=== PATIENT | male | born 1960 | race Hispanic/Latino ===

== ENCOUNTER 2018-04-04 01:26 | Inpatient (IN) | payer OTHER ==
[~2018-04-04] VITALS: Ht 165.1 cm; Wt 85.0 kg
[~2018-04-04 01:26] MED LIST: AMIO200T44 PO; APIX5TAB PO; ASPI-1005 PO; ATOR20TA65 PO; CLOP75TA14 PO; GLYB-228 PO; INSLAN SQ; METO50 PO; PANT40TA PO
[2018-04-04] MEDS ORDERED: IPRATROPIUM/ALBUTEROL SULFATE 3 ML SOLUTION IH ONE (01:58)
[2018-04-04] MEDS ORDERED: NITROGLYCERIN 1GM/1 INCH PACKET TD ONE (02:22)
[2018-04-04] MEDS ORDERED: FUROSEMIDE 10 MG/ML 4ML VIAL ONE ×2 (02:22→07:19)
[2018-04-04 02:27] LABS: APPEARANCE,URINE Clear (CLEAR); BILIRUBIN,URINE Negative (NEGATIVE); COLOR,URINE Yellow (YELLOW); GLUCOSE, URINE (UA) >=1000 mg/dL (NEGATIVE); KETONES,URINE Negative (NEGATIVE); LEUKOCYTE ESTERASE ,URINE Negative (NEGATIVE); NITRATE,URINE Negative (NEGATIVE); OCCULT BLOOD,URINE Negative (NEGATIVE); PH,URINE 5.5 (5.0-8.0); PROTEIN,URINE POS 2+ (NEGATIVE)
[2018-04-04 02:29] LABS: BASOPHILS % (AUTO) 0.5 % (0.0-5.0); CREATININE 1.3 mg/dL (0.5-1.5); HEMATOCRIT 38.3 % (42-54); LYMPHOCYTES % (AUTO) 12.2 % (21.0-51.0); MEAN CORPUSCULAR HEMOGLOBIN 28.8 pg (27.0-33.0); MEAN CORPUSCULAR HGB CONC 32.8 g/dL (32.0-36.0); MEAN CORPUSCULAR VOLUME 87.7 fL (79-99); MONOCYTES % (AUTO) 8.8 % (3.0-13.0); NEUTROPHILS % (AUTO) 76.5 % (40.0-77.0); PLATELET COUNT (AUTO) 450 K/uL (130-400); POTASSIUM 5.1 mmol/L (3.5-5.1); RED BLOOD CELL COUNT(AUTO) 4.36 MIL/uL (4.50-6.20); RED CELL DISTRIBUTION WIDTH 13.4 % (11.0-15.5)
[2018-04-04 02:34] LABS: AMPHET/METH SCREEN,URINE NEGATIVE (NEGATIVE); BARBITURATE SCREEN, URINE NEGATIVE (NEGATIVE); BENZODIAZEPINES SCREEN,URINE NEGATIVE (NEGATIVE); CANNABINOID SCREEN,URINE NEGATIVE (NEGATIVE); COCAINE SCREEN,URINE NEGATIVE (NEGATIVE); OPIATE SCREEN,URINE NEGATIVE (NEGATIVE); PHENCYCLIDINE SCREEN,URINE NEGATIVE (NEGATIVE)
[2018-04-04 02:43] LABS: ALBUMIN 2.3 g/dL (3.5-5.0); BILIRUBIN,TOTAL 0.4 mg/dL (0.2-1.0); CREATINE KINASE MB 2.2 ng/mL (0.5-3.6); TOTAL PROTEIN, SERUM 7.2 g/dL (6.0-8.3)
[2018-04-04 03:07] LABS: BACTERIA,URINE None Seen /HPF (None Seen); MUCUS,URINE Few LPF (None Seen); RBC,URINE None Seen /HPF (0-1); SQUAMOUS EPITHELIAL CELL,UR Few /HPF (0-2); WBC,URINE None Seen /HPF (0-1)
[2018-04-04 08:02] LABS: HEMATOCRIT 37.9 % (42-54); MEAN CORPUSCULAR HEMOGLOBIN 28.7 pg (27.0-33.0); MEAN CORPUSCULAR HGB CONC 32.9 g/dL (32.0-36.0); MEAN CORPUSCULAR VOLUME 87.3 fL (79-99); PLATELET COUNT (AUTO) 450 K/uL (130-400); RED BLOOD CELL COUNT(AUTO) 4.34 MIL/uL (4.50-6.20); RED CELL DISTRIBUTION WIDTH 13.4 % (11.0-15.5); WHITE BLOOD COUNT (AUTO) 15.6 K/uL (4.8-10.8)
[2018-04-04 08:09] LABS: HEMOGLOBIN A1C 10.8 % (4.0-6.0)
[2018-04-04 08:11] LABS: CREATININE 1.2 mg/dL (0.5-1.5); POTASSIUM 4.9 mmol/L (3.5-5.1)
[2018-04-04 08:22] LABS: B-TYPE NATRIURETIC PEPTIDE 1310 pg/mL (0-100)
[2018-04-04] MEDS ORDERED: ENOXAPARIN SODIUM 30 MG/0.3 ML SQ ONE (08:37)
[2018-04-04] MEDS ORDERED: PANTOPRAZOLE SODIUM 40 MG TABLET.DR PO ONE (08:38)
[2018-04-04 08:43] LABS: BAND NEUTROPHILS % (MANUAL) 1 % (0-2); EOSINOPHILS % (MANUAL) 2 % (1-6); LYMPHOCYTES % (MANUAL) 11 % (22-44); MAN.DIFF COMMENT-IMPRESSION MANUAL DIFFERENTIAL; MONOCYTES % (MANUAL) 6 % (2-9); SEGMENTED NEUTROPHILS % 80 % (40-70)
[2018-04-04 08:44] LABS: PLATELET MORPHOLOGY COMMENT ADEQUATE
[2018-04-04] MEDS ORDERED: ENOXAPARIN SODIUM 30 MG/0.3 ML SQ SCH (09:00)
[2018-04-04] MEDS: PANTOPRAZOLE SODIUM 40 MG TABLET.DR PO SCH (09:00)
[2018-04-04] MEDS: FUROSEMIDE 10 MG/ML 4ML VIAL IVP SCH ×2 (09:00→21:27)
[2018-04-04 09:29] VITALS: BP 148/62
[2018-04-04] MEDS: ASPIRIN 81 MG EC TAB PO SCH (10:04)
[2018-04-04] MEDS: METOPROLOL TARTRATE 50 MG TAB PO SCH ×2 (10:04→21:27)
[2018-04-04] MEDS: INSULIN HUMULIN R 100 UNIT/ML 3ML SQ SCH ×3 (10:05→21:33)
[2018-04-04 11:32] VITALS: BP 156/86
[2018-04-04] MEDS ORDERED: POTASSIUM CHLORIDE 20 MEQ ERTAB PO PRN (11:45)
[2018-04-04] MEDS ORDERED: POTASSIUM CHLORIDE 10% ELIXIR 20 MEQ/15 ML UDCUP PO PRN (11:45)
[2018-04-04] MEDS ORDERED: POTASSIUM CHLORIDE 20MEQ/100ML 100 ML IV PRN (11:45)
[2018-04-04] MEDS ORDERED: LIDOCAINE HCL-MPF 1% 2ML VIAL IVP PRN (11:45)
[2018-04-04 13:52] LABS: TROPONIN I 3.01 ng/mL (0.00-0.06)
[2018-04-04 16:20] VITALS: BP 145/80
[2018-04-04 19:19] VITALS: BP 146/66
[2018-04-04] MEDS: LISINOPRIL 2.5 MG TABLET PO SCH (20:20)
[2018-04-04] MEDS: ATORVASTATIN CALCIUM 40 MG TABLET PO SCH (21:27)
[2018-04-04] MEDS: APIXABAN 5 MG TABLET PO SCH (21:27)
[2018-04-04] MEDS: AMIODARONE HCL 200 MG TABLET PO SCH (21:27)
[2018-04-04 23:31] VITALS: BP 146/82
[2018-04-05 03:13] VITALS: BP 117/74
[2018-04-05 04:35] LABS: CREATININE 1.4 mg/dL (0.5-1.5); POTASSIUM 4.8 mmol/L (3.5-5.1)
[2018-04-05] MEDS: INSULIN HUMULIN R 100 UNIT/ML 3ML SQ SCH ×4 (06:49→21:07)
[2018-04-05 07:22] VITALS: BP 128/49
[2018-04-05] MEDS: METOPROLOL TARTRATE 50 MG TAB PO SCH ×2 (08:25→21:06)
[2018-04-05] MEDS: CLOPIDOGREL BISULFATE 75 MG TAB PO SCH (08:25)
[2018-04-05] MEDS: AMIODARONE HCL 200 MG TABLET PO SCH (08:25)
[2018-04-05] MEDS: PANTOPRAZOLE SODIUM 40 MG TABLET.DR PO SCH (08:25)
[2018-04-05] MEDS: ASPIRIN 81MG TAB.CHEW PO SCH (08:25)
[2018-04-05] MEDS: APIXABAN 5 MG TABLET PO SCH ×2 (08:26→21:05)
[2018-04-05] MEDS: FUROSEMIDE 10 MG/ML 4ML VIAL IVP SCH (08:26)
[2018-04-05] MEDS: ASPIRIN 81 MG EC TAB PO SCH (08:43)
[2018-04-05] MEDS: INSULIN GLARGINE 100 UNITS/ML 10 ML VIAL SQ SCH (08:43)
[2018-04-05 11:10] VITALS: BP 130/68
[2018-04-05 16:19] VITALS: BP 124/92
[2018-04-05 19:20] VITALS: BP 128/69
[2018-04-05] MEDS: LISINOPRIL 2.5 MG TABLET PO SCH (21:05)
[2018-04-05] MEDS: ATORVASTATIN CALCIUM 40 MG TABLET PO SCH (21:05)
[2018-04-05 23:26] VITALS: BP 137/88
[2018-04-06 03:27] VITALS: BP 130/66
[2018-04-06 04:05] LABS: BASOPHILS % (AUTO) 0.9 % (0.0-5.0); EOSINOPHILS % (AUTO) 3.2 % (0.0-8.0); HEMATOCRIT 35.1 % (42-54); LYMPHOCYTES % (AUTO) 18.3 % (21.0-51.0); MEAN CORPUSCULAR HEMOGLOBIN 28.6 pg (27.0-33.0); MEAN CORPUSCULAR HGB CONC 32.6 g/dL (32.0-36.0); MEAN CORPUSCULAR VOLUME 87.5 fL (79-99); MONOCYTES % (AUTO) 9.5 % (3.0-13.0); NEUTROPHILS % (AUTO) 68.1 % (40.0-77.0); PLATELET COUNT (AUTO) 462 K/uL (130-400); RED BLOOD CELL COUNT(AUTO) 4.01 MIL/uL (4.50-6.20); RED CELL DISTRIBUTION WIDTH 13.2 % (11.0-15.5); WHITE BLOOD COUNT (AUTO) 16.7 K/uL (4.8-10.8)
[2018-04-06 04:20] LABS: CREATININE 1.3 mg/dL (0.5-1.5); MAGNESIUM 1.8 mg/dL (1.80-2.40); POTASSIUM 4.1 mmol/L (3.5-5.1)
[2018-04-06] MEDS: INSULIN HUMULIN R 100 UNIT/ML 3ML SQ SCH ×4 (05:58→20:27)
[2018-04-06 07:33] VITALS: BP 164/81
[2018-04-06] MEDS: INSULIN GLARGINE 100 UNITS/ML 10 ML VIAL SQ SCH (08:00)
[2018-04-06] MEDS ORDERED: MIDAZOLAM HCL 1 MG/ML 2ML VIAL IVP SCH (08:15)
[2018-04-06] MEDS ORDERED: LIDOCAINE HCL 2% VISCOUS 15 ML UDCUP PO SCH ×2 (08:15)
[2018-04-06] MEDS ORDERED: FENTANYL CITRATE PF 50 MCG/1 ML 2ML VIAL IVP SCH (08:15)
[2018-04-06] MEDS ORDERED: MEPERIDINE-PF 50 MG/ML SYG IVP SCH (08:15)
[2018-04-06] MEDS ORDERED: SODIUM CHLORIDE 0.9% 1000ML 1,000 ML IV ONE (08:23)
[2018-04-06] MEDS: APIXABAN 5 MG TABLET PO SCH ×3 (09:00→20:14)
[2018-04-06] MEDS: ASPIRIN 81MG TAB.CHEW PO SCH (09:00)
[2018-04-06 11:00] VITALS: BP 135/78
[2018-04-06] MEDS: FUROSEMIDE 40 MG TABLET PO SCH (11:03)
[2018-04-06] MEDS: CLOPIDOGREL BISULFATE 75 MG TAB PO SCH (11:03)
[2018-04-06] MEDS: METOPROLOL TARTRATE 50 MG TAB PO SCH ×2 (11:03→20:15)
[2018-04-06] MEDS: PANTOPRAZOLE SODIUM 40 MG TABLET.DR PO SCH (11:03)
[2018-04-06] MEDS: AMIODARONE HCL 200 MG TABLET PO SCH (11:03)
[2018-04-06] MEDS: BUDESONIDE 0.5 MG/2 ML INH IH SCH ×2 (12:47→18:22)
[2018-04-06 16:05] VITALS: BP 128/65
[2018-04-06] MEDS: DOXYCYCLINE HYCLATE 100 MG TABLET PO SCH ×2 (16:18→20:14)
[2018-04-06] MEDS: METHYLPREDNISOLONE SOD SUCC 40MG/ML 1ML IVP SCH (18:13)
[2018-04-06] MEDS ORDERED: FUROSEMIDE 10 MG/ML 4ML VIAL IV SCH (18:30)
[2018-04-06 18:59] VITALS: BP 134/61
[2018-04-06] MEDS: ATORVASTATIN CALCIUM 40 MG TABLET PO SCH (20:14)
[2018-04-06] MEDS: LISINOPRIL 2.5 MG TABLET PO SCH (20:14)
[2018-04-06] MEDS ORDERED: MORPHINE SULFATE 2 MG/ML 1ML SYG ONE (20:54)
[2018-04-06] MEDS ORDERED: MORPHINE SULFATE 2 MG/ML 1ML SYG IVP ONE (21:00)
[2018-04-06] MEDS: ALBUTEROL SULFATE 0.083% 2.5 MG/3 ML INH IH SCH (21:07)
[2018-04-06 23:50] VITALS: BP 134/94
[2018-04-07] MEDS: ALBUTEROL SULFATE 0.083% 2.5 MG/3 ML INH IH SCH ×5 (00:12→23:07)
[2018-04-07] MEDS: METHYLPREDNISOLONE SOD SUCC 40MG/ML 1ML IVP SCH ×3 (02:13→17:21)
[2018-04-07 03:45] VITALS: BP 125/81
[2018-04-07 04:09] LABS: BASOPHILS % (AUTO) 0.1 % (0.0-5.0); HEMATOCRIT 37.2 % (42-54); LYMPHOCYTES % (AUTO) 5.8 % (21.0-51.0); MEAN CORPUSCULAR HEMOGLOBIN 28.8 pg (27.0-33.0); MEAN CORPUSCULAR HGB CONC 32.6 g/dL (32.0-36.0); MEAN CORPUSCULAR VOLUME 88.2 fL (79-99); MONOCYTES % (AUTO) 2.2 % (3.0-13.0); NEUTROPHILS % (AUTO) 91.9 % (40.0-77.0); PLATELET COUNT (AUTO) 581 K/uL (130-400); RED BLOOD CELL COUNT(AUTO) 4.22 MIL/uL (4.50-6.20); RED CELL DISTRIBUTION WIDTH 13.7 % (11.0-15.5); WHITE BLOOD COUNT (AUTO) 16.4 K/uL (4.8-10.8)
[2018-04-07 04:12] LABS: CREATININE 1.3 mg/dL (0.5-1.5); MAGNESIUM 1.7 mg/dL (1.80-2.40); POTASSIUM 4.6 mmol/L (3.5-5.1)
[2018-04-07 04:47] LABS: B-TYPE NATRIURETIC PEPTIDE 1020 pg/mL (0-100)
[2018-04-07] MEDS: BUDESONIDE 0.5 MG/2 ML INH IH SCH ×2 (06:25→18:22)
[2018-04-07] MEDS: MAGNESIUM 2GM PREMIX 50ML 50 ML IV PRN (06:33)
[2018-04-07] MEDS: INSULIN HUMULIN R 100 UNIT/ML 3ML SQ SCH ×4 (06:34→20:48)
[2018-04-07 07:34] VITALS: BP 115/72
[2018-04-07] MEDS: APIXABAN 5 MG TABLET PO SCH ×2 (07:49→20:15)
[2018-04-07] MEDS: CLOPIDOGREL BISULFATE 75 MG TAB PO SCH (07:49)
[2018-04-07] MEDS: PANTOPRAZOLE SODIUM 40 MG TABLET.DR PO SCH (07:49)
[2018-04-07] MEDS: ASPIRIN 81MG TAB.CHEW PO SCH (07:49)
[2018-04-07] MEDS: FUROSEMIDE 40 MG TABLET PO SCH (07:50)
[2018-04-07] MEDS: DOXYCYCLINE HYCLATE 100 MG TABLET PO SCH ×2 (07:50→20:15)
[2018-04-07] MEDS: AMIODARONE HCL 200 MG TABLET PO SCH (07:50)
[2018-04-07] MEDS: METOPROLOL TARTRATE 50 MG TAB PO SCH ×2 (07:50→20:15)
[2018-04-07] MEDS: INSULIN GLARGINE 100 UNITS/ML 10 ML VIAL SQ SCH (07:56)
[2018-04-07] MEDS: FUROSEMIDE 10 MG/ML 4ML VIAL IV SCH ×2 (08:48→17:00)
[2018-04-07 11:09] VITALS: BP 117/77
[2018-04-07 16:28] VITALS: BP 124/52
[2018-04-07 18:31] VITALS: BP 128/79
[2018-04-07] MEDS: LISINOPRIL 2.5 MG TABLET PO SCH (20:15)
[2018-04-07] MEDS: ATORVASTATIN CALCIUM 40 MG TABLET PO SCH (20:15)
[2018-04-07] MEDS ORDERED: INSULIN GLARGINE 100 UNITS/ML 10 ML VIAL SQ SCH (21:00)
[2018-04-07 23:32] VITALS: BP 118/73
[2018-04-08] MEDS: METHYLPREDNISOLONE SOD SUCC 40MG/ML 1ML IVP SCH ×3 (02:11→21:15)
[2018-04-08 04:05] VITALS: BP 122/85
[2018-04-08 04:27] LABS: BASOPHILS % (AUTO) 0.2 % (0.0-5.0); HEMATOCRIT 36.5 % (42-54); LYMPHOCYTES % (AUTO) 4.8 % (21.0-51.0); MEAN CORPUSCULAR HEMOGLOBIN 28.2 pg (27.0-33.0); MEAN CORPUSCULAR VOLUME 87.9 fL (79-99); MONOCYTES % (AUTO) 4.2 % (3.0-13.0); NEUTROPHILS % (AUTO) 90.8 % (40.0-77.0); PLATELET COUNT (AUTO) 541 K/uL (130-400); RED BLOOD CELL COUNT(AUTO) 4.15 MIL/uL (4.50-6.20); RED CELL DISTRIBUTION WIDTH 13.7 % (11.0-15.5); WHITE BLOOD COUNT (AUTO) 29.5 K/uL (4.8-10.8)
[2018-04-08 04:40] LABS: ALBUMIN 2.2 g/dL (3.5-5.0); BILIRUBIN,DIRECT 0.1 mg/dL (0.0-0.3); BILIRUBIN,TOTAL 0.3 mg/dL (0.2-1.0); CREATININE 1.7 mg/dL (0.5-1.5); POTASSIUM 4.6 mmol/L (3.5-5.1); TOTAL PROTEIN, SERUM 7.2 g/dL (6.0-8.3)
[2018-04-08 04:58] LABS: B-TYPE NATRIURETIC PEPTIDE 1280 pg/mL (0-100)
[2018-04-08] MEDS: INSULIN HUMULIN R 100 UNIT/ML 3ML SQ SCH ×4 (06:14→21:26)
[2018-04-08] MEDS: BUDESONIDE 0.5 MG/2 ML INH IH SCH ×2 (06:26→20:14)
[2018-04-08] MEDS: ALBUTEROL SULFATE 0.083% 2.5 MG/3 ML INH IH SCH ×3 (06:26→19:33)
[2018-04-08] MEDS ORDERED: INSULIN GLARGINE 100 UNITS/ML 10 ML VIAL SQ SCH ×2 (07:30→21:00)
[2018-04-08 07:37] VITALS: BP 126/82
[2018-04-08] MEDS: DOXYCYCLINE HYCLATE 100 MG TABLET PO SCH ×2 (07:51→21:15)
[2018-04-08] MEDS: ASPIRIN 81MG TAB.CHEW PO SCH (07:51)
[2018-04-08] MEDS: PANTOPRAZOLE SODIUM 40 MG TABLET.DR PO SCH (07:51)
[2018-04-08] MEDS: FUROSEMIDE 10 MG/ML 4ML VIAL IV SCH (07:52)
[2018-04-08] MEDS: METOPROLOL TARTRATE 50 MG TAB PO SCH ×2 (07:52→21:16)
[2018-04-08] MEDS: APIXABAN 5 MG TABLET PO SCH ×2 (07:52→21:16)
[2018-04-08] MEDS: CLOPIDOGREL BISULFATE 75 MG TAB PO SCH (07:52)
[2018-04-08] MEDS: AMIODARONE HCL 200 MG TABLET PO SCH (07:52)
[2018-04-08 11:29] VITALS: BP 111/70
[2018-04-08 16:17] LABS: APPEARANCE,URINE Clear (CLEAR); BILIRUBIN,URINE Negative (NEGATIVE); COLOR,URINE Yellow (YELLOW); GLUCOSE, URINE (UA) 500 mg/dL (NEGATIVE); KETONES,URINE Negative (NEGATIVE); LEUKOCYTE ESTERASE ,URINE Negative (NEGATIVE); NITRATE,URINE Negative (NEGATIVE); OCCULT BLOOD,URINE Negative (NEGATIVE); PROTEIN,URINE POS 2+ (NEGATIVE)
[2018-04-08 16:19] VITALS: BP 145/61
[2018-04-08 16:24] LABS: BACTERIA,URINE Rare /HPF (None Seen); RBC,URINE 0-1 /HPF (0-1); WBC,URINE 0-1 /HPF (0-1)
[2018-04-08 16:25] LABS: SQUAMOUS EPITHELIAL CELL,UR Rare /HPF (0-2)
[2018-04-08 16:27] LABS: URIC ACID CRYSTALS,URINE Moderate /LPF (None Seen)
[2018-04-08] MEDS ORDERED: FUROSEMIDE 10 MG/ML 4ML VIAL IV SCH (17:00)
[2018-04-08 19:33] VITALS: BP 135/80
[2018-04-08] MEDS: ATORVASTATIN CALCIUM 40 MG TABLET PO SCH (21:15)
[2018-04-08 23:39] VITALS: BP 138/79
[2018-04-09] MEDS: ALBUTEROL SULFATE 0.083% 2.5 MG/3 ML INH IH SCH ×5 (01:36→23:15)
[2018-04-09 03:17] VITALS: BP 130/81
[2018-04-09 03:59] LABS: BASOPHILS % (AUTO) 0.1 % (0.0-5.0); HEMATOCRIT 37.7 % (42-54); LYMPHOCYTES % (AUTO) 5.8 % (21.0-51.0); MEAN CORPUSCULAR HEMOGLOBIN 27.3 pg (27.0-33.0); MEAN CORPUSCULAR HGB CONC 31.1 g/dL (32.0-36.0); MEAN CORPUSCULAR VOLUME 87.9 fL (79-99); MONOCYTES % (AUTO) 3.1 % (3.0-13.0); PLATELET COUNT (AUTO) 503 K/uL (130-400); RED BLOOD CELL COUNT(AUTO) 4.29 MIL/uL (4.50-6.20); RED CELL DISTRIBUTION WIDTH 13.8 % (11.0-15.5)
[2018-04-09 04:44] LABS: CREATININE 1.4 mg/dL (0.5-1.5); MAGNESIUM 1.9 mg/dL (1.80-2.40); PHOSPHORUS 3.8 mg/dL (2.5-4.9); POTASSIUM 4.7 mmol/L (3.5-5.1); THYROID STIMULATING HORMONE 2.47 uIU/mL (0.36-3.74); URIC ACID 5.3 mg/dL (2.6-7.2)
[2018-04-09] MEDS: BUDESONIDE 0.5 MG/2 ML INH IH SCH ×2 (06:58→18:11)
[2018-04-09] MEDS: INSULIN HUMULIN R 100 UNIT/ML 3ML SQ SCH ×4 (07:13→20:37)
[2018-04-09] MEDS ORDERED: INSULIN GLARGINE 100 UNITS/ML 10 ML VIAL SQ SCH (07:30)
[2018-04-09] MEDS: METHYLPREDNISOLONE SOD SUCC 40MG/ML 1ML IVP SCH (09:00)
[2018-04-09 09:20] VITALS: BP 123/85
[2018-04-09] MEDS: PANTOPRAZOLE SODIUM 40 MG TABLET.DR PO SCH (09:33)
[2018-04-09] MEDS: METOPROLOL TARTRATE 50 MG TAB PO SCH ×2 (09:33→20:33)
[2018-04-09] MEDS: FOLIC ACID/VITAMIN B COMP W-C 1 MG CAPSULE PO SCH (09:33)
[2018-04-09] MEDS: APIXABAN 5 MG TABLET PO SCH ×2 (09:33→20:31)
[2018-04-09] MEDS: LISINOPRIL 5 MG TABLET PO SCH ×2 (09:33→20:32)
[2018-04-09] MEDS: DOXYCYCLINE HYCLATE 100 MG TABLET PO SCH ×2 (09:33→20:32)
[2018-04-09] MEDS: CLOPIDOGREL BISULFATE 75 MG TAB PO SCH (09:33)
[2018-04-09] MEDS: AMIODARONE HCL 200 MG TABLET PO SCH (09:33)
[2018-04-09] MEDS: ASPIRIN 81MG TAB.CHEW PO SCH (09:33)
[2018-04-09] MEDS: PREDNISONE 20 MG TABLET PO SCH ×2 (09:33→20:32)
[2018-04-09] MEDS: FUROSEMIDE 40 MG TABLET PO SCH ×2 (09:34→16:14)
[2018-04-09 11:00] VITALS: BP 125/82
[2018-04-09 16:00] VITALS: BP 126/69
[2018-04-09 19:00] VITALS: BP 135/74
[2018-04-09] MEDS: ATORVASTATIN CALCIUM 40 MG TABLET PO SCH (20:32)
[2018-04-09] MEDS: INSULIN GLARGINE 100 UNITS/ML 10 ML VIAL SQ SCH (20:37)
[2018-04-09 23:00] VITALS: BP 141/90
[2018-04-10 01:58] LABS: COLLECTION PERIOD,URINE 24 HR; TOTAL VOLUME 24HRS,URINE 2600 mL; TPROTEIN TIMED,URINE 57 mg/dL; TPROTEIN U,24HR CALC 1482 mg/24HR (0-165)
[2018-04-10 03:00] VITALS: BP 146/92
[2018-04-10 03:42] LABS: HEMATOCRIT 37.5 % (42-54); MEAN CORPUSCULAR HEMOGLOBIN 29.1 pg (27.0-33.0); MEAN CORPUSCULAR HGB CONC 33.2 g/dL (32.0-36.0); MEAN CORPUSCULAR VOLUME 87.7 fL (79-99); NUCLEATED RED BLOOD CELLS 0.1 % (0.0-0.19); PLATELET COUNT (AUTO) 545 K/uL (130-400); RED BLOOD CELL COUNT(AUTO) 4.27 MIL/uL (4.50-6.20); RED CELL DISTRIBUTION WIDTH 13.5 % (11.0-15.5); WHITE BLOOD COUNT (AUTO) 22.6 K/uL (4.8-10.8)
[2018-04-10 03:53] LABS: CREATININE 1.2 mg/dL (0.5-1.5); MAGNESIUM 1.8 mg/dL (1.80-2.40); POTASSIUM 4.5 mmol/L (3.5-5.1)
[2018-04-10 05:19] LABS: CREATININE,SERUM FOR CRCL 1.2 mg/dL (0.6-1.3)
[2018-04-10 05:30] LABS: BAND NEUTROPHILS % (MANUAL) 5 % (0-2); LYMPHOCYTES % (MANUAL) 16 % (22-44); MAN.DIFF COMMENT-IMPRESSION MANUAL DIFFERENTIAL; MONOCYTES % (MANUAL) 3 % (2-9); PLATELET MORPHOLOGY COMMENT INCREASED; SEGMENTED NEUTROPHILS % 76 % (40-70)
[2018-04-10] MEDS: ALBUTEROL SULFATE 0.083% 2.5 MG/3 ML INH IH SCH ×4 (06:24→23:55)
[2018-04-10] MEDS: BUDESONIDE 0.5 MG/2 ML INH IH SCH ×2 (06:34→18:45)
[2018-04-10] MEDS: INSULIN GLARGINE 100 UNITS/ML 10 ML VIAL SQ SCH ×2 (06:42→21:09)
[2018-04-10] MEDS: INSULIN HUMULIN R 100 UNIT/ML 3ML SQ SCH ×4 (06:43→21:25)
[2018-04-10 07:00] VITALS: BP 138/85
[2018-04-10] MEDS: PANTOPRAZOLE SODIUM 40 MG TABLET.DR PO SCH (09:06)
[2018-04-10] MEDS: ASPIRIN 81MG TAB.CHEW PO SCH (09:06)
[2018-04-10] MEDS: AMIODARONE HCL 200 MG TABLET PO SCH (09:06)
[2018-04-10] MEDS: CLOPIDOGREL BISULFATE 75 MG TAB PO SCH (09:06)
[2018-04-10] MEDS: FOLIC ACID/VITAMIN B COMP W-C 1 MG CAPSULE PO SCH (09:06)
[2018-04-10] MEDS: FUROSEMIDE 40 MG TABLET PO SCH ×2 (09:07→16:17)
[2018-04-10] MEDS: LISINOPRIL 5 MG TABLET PO SCH ×2 (09:07→21:00)
[2018-04-10] MEDS: DOXYCYCLINE HYCLATE 100 MG TABLET PO SCH ×2 (09:07→21:01)
[2018-04-10] MEDS: METOPROLOL TARTRATE 50 MG TAB PO SCH ×2 (09:07→21:01)
[2018-04-10] MEDS: PREDNISONE 20 MG TABLET PO SCH ×2 (09:07→20:59)
[2018-04-10] MEDS: APIXABAN 5 MG TABLET PO SCH ×2 (09:08→21:00)
[2018-04-10 11:00] VITALS: BP 150/80
[2018-04-10 16:00] VITALS: BP 129/75
[2018-04-10 19:00] VITALS: BP 128/87
[2018-04-10] MEDS: ATORVASTATIN CALCIUM 40 MG TABLET PO SCH (21:01)
[2018-04-10 23:00] VITALS: BP 124/58
[2018-04-11 03:00] VITALS: BP 120/71
[2018-04-11 04:23] LABS: BASOPHILS % (AUTO) 0.1 % (0.0-5.0); EOSINOPHILS % (AUTO) 0.6 % (0.0-8.0); HEMATOCRIT 37.8 % (42-54); LYMPHOCYTES % (AUTO) 17.4 % (21.0-51.0); MEAN CORPUSCULAR HEMOGLOBIN 28.1 pg (27.0-33.0); MEAN CORPUSCULAR HGB CONC 32.3 g/dL (32.0-36.0); MEAN CORPUSCULAR VOLUME 87.2 fL (79-99); MONOCYTES % (AUTO) 6.2 % (3.0-13.0); NEUTROPHILS % (AUTO) 75.7 % (40.0-77.0); PLATELET COUNT (AUTO) 444 K/uL (130-400); RED BLOOD CELL COUNT(AUTO) 4.34 MIL/uL (4.50-6.20); RED CELL DISTRIBUTION WIDTH 13.8 % (11.0-15.5); WHITE BLOOD COUNT (AUTO) 17.8 K/uL (4.8-10.8)
[2018-04-11 04:35] LABS: CREATININE 1.2 mg/dL (0.5-1.5); MAGNESIUM 1.6 mg/dL (1.80-2.40)
[2018-04-11 04:48] LABS: B-TYPE NATRIURETIC PEPTIDE 1070 pg/mL (0-100)
[2018-04-11] MEDS: ALBUTEROL SULFATE 0.083% 2.5 MG/3 ML INH IH SCH ×2 (06:24→11:14)
[2018-04-11] MEDS: BUDESONIDE 0.5 MG/2 ML INH IH SCH (06:43)
[2018-04-11] MEDS: INSULIN HUMULIN R 100 UNIT/ML 3ML SQ SCH ×2 (07:27→12:23)
[2018-04-11 07:40] VITALS: BP 120/72
[2018-04-11] MEDS: INSULIN GLARGINE 100 UNITS/ML 10 ML VIAL SQ SCH (07:58)
[2018-04-11] MEDS: DOXYCYCLINE HYCLATE 100 MG TABLET PO SCH (10:05)
[2018-04-11] MEDS: FOLIC ACID/VITAMIN B COMP W-C 1 MG CAPSULE PO SCH (10:05)
[2018-04-11] MEDS: LISINOPRIL 5 MG TABLET PO SCH (10:06)
[2018-04-11] MEDS: AMIODARONE HCL 200 MG TABLET PO SCH (10:07)
[2018-04-11] MEDS: CLOPIDOGREL BISULFATE 75 MG TAB PO SCH (10:07)
[2018-04-11] MEDS: APIXABAN 5 MG TABLET PO SCH (10:08)
[2018-04-11] MEDS: ASPIRIN 81MG TAB.CHEW PO SCH (10:08)
[2018-04-11] MEDS: PREDNISONE 20 MG TABLET PO SCH (10:08)
[2018-04-11] MEDS: METOPROLOL TARTRATE 50 MG TAB PO SCH (10:09)
[2018-04-11] MEDS: PANTOPRAZOLE SODIUM 40 MG TABLET.DR PO SCH (10:09)
[2018-04-11] MEDS: FUROSEMIDE 40 MG TABLET PO SCH (10:09)
[2018-04-11] MEDS: MAGNESIUM 2GM PREMIX 50ML 50 ML IV PRN (11:00)
[2018-04-11 11:07] VITALS: BP 122/71
[2018-04-11] MEDS ORDERED: LISI-617 PO (11:37)
[2018-04-11] MEDS ORDERED: FURO40TA7 PO (11:37)
[2018-04-11] MEDS ORDERED: AMIO200T44 PO (11:37)
[2018-04-11] MEDS ORDERED: PRED5TAB PO (11:37)
[2018-04-11] MEDS ORDERED: DOXY100T2 PO (11:37)
== END 2018-04-11 14:00 | disposition home or self-care (01) | DRG 280 ==
LOC: EDH 01:26 → EDHIP 01:27 → 2BH 09:01 → 2DH 04-10 18:03
PROVIDERS: ADMIT Hospitalist; ATTEND Hospitalist
PROC: 5A2204Z Restoration of Cardiac Rhythm, Single (ICD-10-PCS; principal; 2018-04-06)
PROC: B246ZZ4 Ultrasonography of Right and Left Heart, Transesophageal (ICD-10-PCS; 2018-04-06)
PROC: 5A09357 Assistance with Respiratory Ventilation, Less than 24 Consecutive Hours, Continuous Positive Airway Pressure (ICD-10-PCS; 2018-04-06)
PROC: 5A09357 Assistance with Respiratory Ventilation, Less than 24 Consecutive Hours, Continuous Positive Airway Pressure (ICD-10-PCS; 2018-04-09)
DX: I13.0 Hypertensive heart and chronic kidney disease with heart failure and stage 1 through stage 4 chronic kidney disease, or unspecified chronic kidney disease (principal); I50.43 Acute on chronic combined systolic (congestive) and diastolic (congestive) heart failure; I21.11 ST elevation (STEMI) myocardial infarction involving right coronary artery; E87.1 Hypo-osmolality and hyponatremia; I48.1 Persistent atrial fibrillation; D68.69 Other thrombophilia; I48.92 Unspecified atrial flutter; J44.0 Chronic obstructive pulmonary disease with (acute) lower respiratory infection; N17.9 Acute kidney failure, unspecified; I11.0 Hypertensive heart disease with heart failure; E11.65 Type 2 diabetes mellitus with hyperglycemia; E78.5 Hyperlipidemia, unspecified; D64.9 Anemia, unspecified; E11.22 Type 2 diabetes mellitus with diabetic chronic kidney disease; E11.51 Type 2 diabetes mellitus with diabetic peripheral angiopathy without gangrene; E66.9 Obesity, unspecified; Z68.31 Body mass index [BMI] 31.0-31.9, adult; F17.200 Nicotine dependence, unspecified, uncomplicated; F41.9 Anxiety disorder, unspecified; I08.1 Rheumatic disorders of both mitral and tricuspid valves; I25.10 Atherosclerotic heart disease of native coronary artery without angina pectoris; I25.2 Old myocardial infarction; I25.5 Ischemic cardiomyopathy; J20.9 Acute bronchitis, unspecified; N18.3 Chronic kidney disease, stage 3 (moderate); T38.0X5A Adverse effect of glucocorticoids and synthetic analogues, initial encounter; Z79.01 Long term (current) use of anticoagulants; Z79.4 Long term (current) use of insulin; Z86.73 Personal history of transient ischemic attack (TIA), and cerebral infarction without residual deficits; Z91.14 Patient's other noncompliance with medication regimen; Z95.5 Presence of coronary angioplasty implant and graft; Z28.21 Immunization not carried out because of patient refusal
CPT/HCPCS: 36415; 71045; 71046; 76770; 78580; 80048; 80053; 80061; 80076; 80305; 80339; 81001; 82550; 82553; 82575; 82947; 82948; 83036; 83605; 83735; 83874; 83880; 84100; 84156; 84443; 84484; 84550; 85025; 87040; 92960; 93005; 93306; 93313; 94640; 94660; 94664; A9540; J1650; J1815; J1940; J2175; J2250; J2920; J3010; J3475; J7030

== ENCOUNTER → 2021-07-30 | Outpatient (CLI) | payer MEDICARE ==
[~2021-07-30] VITALS: Ht 167.6 cm; Wt 95.3 kg
[~2021-07-30] MED LIST changes: -APIX5TAB PO; +FURO40TA7 PO; -GLYB-228 PO; -INSLAN SQ; +Isosorbide Mono 30MG Tab Sr PO; +LISI40TA9 PO; +Nitroglycerin 0.4MG Sl Tab SL; +REGADENOSON 0.4 MG/5 ML PF SYG IVP SCH; +TAMS-1 PO
== END | disposition home or self-care (01) ==
LOC: SHCH 08:07
PROVIDERS: ATTEND Internal Medicine Cardiovascular Disease
DX: I48.0 Paroxysmal atrial fibrillation (principal); R94.39 Abnormal result of other cardiovascular function study
CPT/HCPCS: 78452; 93017; 96374; A9500 ×2; J2785

== ENCOUNTER 2022-01-31 11:19 | Emergency (ER) | payer MEDICARE ==
[~2022-01-31] VITALS: Ht 172.7 cm; Wt 86.2 kg
[~2022-01-31 11:19] MED LIST changes: -REGADENOSON 0.4 MG/5 ML PF SYG IVP SCH
[2022-01-31] MEDS ORDERED: METOPROLOL TARTRATE 1 MG/ML 5ML VIAL IV ONE ×3 (11:30→12:00)
[2022-01-31] MEDS ORDERED: AMIODARONE 150MG VIAL IV STA (11:37)
[2022-01-31 11:44] LABS: BASOPHILS % (AUTO) 0.3 % (0.0-5.0); EOSINOPHILS % (AUTO) 1.4 % (0.0-8.0); LYMPHOCYTES % (AUTO) 14.4 % (21.0-51.0); MEAN CORPUSCULAR HEMOGLOBIN 29.3 pg (27.0-33.0); MEAN CORPUSCULAR HGB CONC 32.6 g/dL (32.0-36.0); MEAN CORPUSCULAR VOLUME 89.9 fL (79-99); MONOCYTES % (AUTO) 11.3 % (3.0-13.0); NEUTROPHILS % (AUTO) 72.3 % (40.0-77.0); PLATELET COUNT (AUTO) 188 K/uL (130-400); RED BLOOD CELL COUNT(AUTO) 6.01 MIL/uL (4.50-6.20); RED CELL DISTRIBUTION WIDTH 14.1 % (11.0-15.5); WHITE BLOOD COUNT (AUTO) 9.4 K/uL (4.8-10.8)
[2022-01-31 11:52] LABS: CREATININE 1.2 mg/dL (0.5-1.5); POTASSIUM 4.5 mmol/L (3.5-5.1)
[2022-01-31 12:08] LABS: ALBUMIN 2.6 g/dL (3.5-5.0); BILIRUBIN,TOTAL 0.5 mg/dL (0.2-1.0); THYROID STIMULATING HORMONE 1.88 uIU/mL (0.36-3.74)
[2022-01-31 12:16] LABS: B-TYPE NATRIURETIC PEPTIDE 259 pg/mL (0-100)
[2022-01-31 12:23] LABS: APPEARANCE,URINE CLEAR (CLEAR); BILIRUBIN,URINE NEGATIVE (NEGATIVE); COLOR,URINE YELLOW (YELLOW); GLUCOSE, URINE (UA) >=1000 mg/dL (NEGATIVE); KETONES,URINE 5 mg/dL (NEGATIVE); LEUKOCYTE ESTERASE ,URINE NEGATIVE (NEGATIVE); NITRATE,URINE NEGATIVE (NEGATIVE); OCCULT BLOOD,URINE NEGATIVE (NEGATIVE); PH,URINE 5.5 (5.0-8.0); PROTEIN,URINE >=300 mg/dL (NEGATIVE); UROBILINOGEN,URINE 0.2 mg/dL (0.2-1.0)
[2022-01-31 12:32] LABS: AMPHET/METH SCREEN,URINE NEGATIVE (NEGATIVE); BARBITURATE SCREEN, URINE NEGATIVE (NEGATIVE); BENZODIAZEPINES SCREEN,URINE NEGATIVE (NEGATIVE); CANNABINOID SCREEN,URINE NEGATIVE (NEGATIVE); COCAINE SCREEN,URINE NEGATIVE (NEGATIVE); OPIATE SCREEN,URINE NEGATIVE (NEGATIVE); PHENCYCLIDINE SCREEN,URINE NEGATIVE (NEGATIVE)
[2022-01-31 12:35] LABS: BACTERIA,URINE Rare /HPF (None Seen); RBC,URINE 0-1 /HPF (0-1); SQUAMOUS EPITHELIAL CELL,UR Rare /HPF (0-2); WBC,URINE None Seen /HPF (0-1)
[2022-01-31] MEDS ORDERED: AMIODARONE 150MG VIAL IV ONE (12:53)
[2022-01-31 13:55] VITALS: BP 113/76
== END 2022-01-31 14:10 | disposition home or self-care (01) ==
LOC: EDH 11:19
DX: I48.91 Unspecified atrial fibrillation (principal); E78.5 Hyperlipidemia, unspecified; E11.51 Type 2 diabetes mellitus with diabetic peripheral angiopathy without gangrene; E11.42 Type 2 diabetes mellitus with diabetic polyneuropathy; I48.92 Unspecified atrial flutter; I25.10 Atherosclerotic heart disease of native coronary artery without angina pectoris; I25.2 Old myocardial infarction; J44.9 Chronic obstructive pulmonary disease, unspecified; F17.200 Nicotine dependence, unspecified, uncomplicated; Z79.82 Long term (current) use of aspirin; Z79.899 Other long term (current) drug therapy
CPT/HCPCS: 99285; 96374; 71045; 96375; 84443; 84484; 80053; 83880; 80305; 85025; 81001; 36415; 93005 ×2; J3490 ×3; J0282

== ENCOUNTER 2022-02-11 07:02 | Day surgery (SDC) | payer MEDICARE ==
[2022-02-07 11:28] LABS: APPEARANCE,URINE CLEAR (CLEAR); BILIRUBIN,URINE NEGATIVE (NEGATIVE); COLOR,URINE YELLOW (YELLOW); GLUCOSE, URINE (UA) >=1000 mg/dL (NEGATIVE); KETONES,URINE NEGATIVE (NEGATIVE); LEUKOCYTE ESTERASE ,URINE NEGATIVE (NEGATIVE); NITRATE,URINE NEGATIVE (NEGATIVE); OCCULT BLOOD,URINE TRACE-INTACT (NEGATIVE); PROTEIN,URINE 100 mg/dL (NEGATIVE); UROBILINOGEN,URINE 0.2 mg/dL (0.2-1.0)
[2022-02-07 11:34] LABS: CREATININE 1.3 mg/dL (0.5-1.5); POTASSIUM 4.7 mmol/L (3.5-5.1)
[2022-02-07 11:41] LABS: BACTERIA,URINE Few /HPF (None Seen); RBC,URINE 0-1 /HPF (0-1); SQUAMOUS EPITHELIAL CELL,UR 0-2 /HPF (0-2); WBC,URINE 0-1 /HPF (0-1)
[2022-02-07 12:04] LABS: INR 1.21 (0.85-1.15)
[2022-02-07 12:05] LABS: PARTIAL THROMBOPLASTIN TIME 45.3 SEC (26.3-35.5)
[2022-02-10 14:00] VITALS: BP 121/86
[2022-02-11] VITALS (12 sets, daily range): BP systolic 106–135; BP diastolic 58–85
[~2022-02-11] VITALS: Ht 170.2 cm; Wt 84.5 kg
[~2022-02-11 07:02] MED LIST changes: +0.9% NACL 500ML IV.SOLN 500 ML IV SCH; -AMIO200T44 PO; -ASPI-1005 PO; -CLOP75TA14 PO; +DABI150C PO; +EMPA25TA PO; +FURO40TA5 PO; -FURO40TA7 PO; +INSU100V12 SQ; -LISI40TA9 PO; +METF-444 PO; +METO100T14 PO; -METO50 PO; -Nitroglycerin 0.4MG Sl Tab SL; -PANT40TA PO; +SEMA1PEN3 SQ; -TAMS-1 PO
[2022-02-11 07:18] LABS: BASOPHILS % (AUTO) 0.5 % (0.0-5.0); EOSINOPHILS % (AUTO) 3.1 % (0.0-8.0); HEMATOCRIT 51.8 % (42-54); LYMPHOCYTES % (AUTO) 26.2 % (21.0-51.0); MEAN CORPUSCULAR HEMOGLOBIN 29.7 pg (27.0-33.0); MEAN CORPUSCULAR HGB CONC 32.6 g/dL (32.0-36.0); MONOCYTES % (AUTO) 8.5 % (3.0-13.0); NEUTROPHILS % (AUTO) 61.5 % (40.0-77.0); PLATELET COUNT (AUTO) 224 K/uL (130-400); RED BLOOD CELL COUNT(AUTO) 5.69 MIL/uL (4.50-6.20); WHITE BLOOD COUNT (AUTO) 9.3 K/uL (4.8-10.8)
[2022-02-11] MEDS ORDERED: NITROGLYCERIN 50MG VIAL ONE (08:44)
[2022-02-11] MEDS ORDERED: IOHEXOL 350 MG/ML 100ML INFUS..BTL IV ONE (08:47)
[2022-02-11] MEDS ORDERED: MIDAZOLAM HCL 1 MG/ML 2ML VIAL ONE (08:48)
[2022-02-11] MEDS ORDERED: FENTANYL CITRATE PF 50 MCG/1 ML 2ML VIAL ONE (08:48)
[2022-02-11] MEDS ORDERED: LIDOCAINE HCL 400MG/20ML VIAL ONE (08:48)
[2022-02-11] MEDS ORDERED: METOPROLOL TARTRATE 1 MG/ML 5ML VIAL IV ONE ×2 (09:16→09:31)
[2022-02-11] MEDS ORDERED: IOHEXOL-350 50ML VIAL IV ONE (09:27)
[2022-02-11] MEDS ORDERED: DEXTROSE 50%-WATER 50 ML DISP.SYRIN IV PRN (10:00)
[2022-02-11] MEDS ORDERED: GLUCAGON 1MG KIT 1 MG ML IM PRN (10:00)
[2022-02-11] MEDS ORDERED: 0.9%NACL 1000ML 1,000 ML IV SCH (10:00)
[2022-02-11] MEDS ORDERED: INSULIN HUMULIN R 100 UNIT/ML 3ML SQ SCH (11:30)
== END 2022-02-11 13:40 | disposition home or self-care (01) ==
LOC: DAH 07:02
PROVIDERS: ATTEND Internal Medicine Cardiovascular Disease
DX: I25.119 Atherosclerotic heart disease of native coronary artery with unspecified angina pectoris (principal); E78.5 Hyperlipidemia, unspecified; I44.1 Atrioventricular block, second degree; I48.92 Unspecified atrial flutter; I11.0 Hypertensive heart disease with heart failure; I50.22 Chronic systolic (congestive) heart failure; D68.59 Other primary thrombophilia; E11.9 Type 2 diabetes mellitus without complications; J44.9 Chronic obstructive pulmonary disease, unspecified; I25.2 Old myocardial infarction; I48.91 Unspecified atrial fibrillation; Z98.890 Other specified postprocedural states; Z79.899 Other long term (current) drug therapy; Z87.891 Personal history of nicotine dependence; Z79.01 Long term (current) use of anticoagulants; Z79.84 Long term (current) use of oral hypoglycemic drugs
CPT/HCPCS: 80048; 83880; 85610; 85730; 81001; 36415 ×2; 71045; 93005; 93458; 85025; 82948; C1894 ×2; Q9965; J7040; J3010; J3490 ×4; J2250; J1644; Q9967 ×2; 99156; 99157

== ENCOUNTER 2022-02-25 13:54 | Inpatient (IN) | payer MEDICARE ==
[2022-02-25] VITALS (29 sets, daily range): BP systolic 105–137; BP diastolic 65–101
[~2022-02-25] VITALS: Ht 165.1 cm; Wt 83.6 kg
[~2022-02-25 13:54] MED LIST changes: -0.9% NACL 500ML IV.SOLN 500 ML IV SCH
[2022-02-25] MEDS ORDERED: NITROGLYCERIN 0.4 MG SL TAB SL PRN ×2 (14:30→16:00)
[2022-02-25] MEDS ORDERED: CLONIDINE HCL 0.1 MG TABLET PO PRN (14:30)
[2022-02-25] MEDS ORDERED: IPRATROPIUM/ALBUTEROL SULFATE 3 ML SOLUTION IH PRN (14:30)
[2022-02-25] MEDS ORDERED: ACETAMINOPHEN 325 MG TAB PO PRN ×3 (14:30→16:00)
[2022-02-25 14:37] LABS: BASOPHILS % (AUTO) 0.4 % (0.0-5.0); HEMATOCRIT 50.3 % (42-54); LYMPHOCYTES % (AUTO) 19.3 % (21.0-51.0); MEAN CORPUSCULAR HEMOGLOBIN 29.6 pg (27.0-33.0); MEAN CORPUSCULAR HGB CONC 33.2 g/dL (32.0-36.0); MONOCYTES % (AUTO) 9.5 % (3.0-13.0); NEUTROPHILS % (AUTO) 67.5 % (40.0-77.0); PLATELET COUNT (AUTO) 186 K/uL (130-400); RED BLOOD CELL COUNT(AUTO) 5.65 MIL/uL (4.50-6.20); RED CELL DISTRIBUTION WIDTH 14.4 % (11.0-15.5)
[2022-02-25] MEDS ORDERED: METOPROLOL TARTRATE 50 MG TAB ONE (14:39)
[2022-02-25 14:48] LABS: CREATININE 1.2 mg/dL (0.5-1.5); POTASSIUM 4.3 mmol/L (3.5-5.1)
[2022-02-25] MEDS: METOPROLOL TARTRATE 50 MG TAB PO SCH (14:52)
[2022-02-25 15:01] LABS: ALBUMIN 2.6 g/dL (3.5-5.0); THYROID STIMULATING HORMONE 1.77 uIU/mL (0.36-3.74); TOTAL PROTEIN, SERUM 7.7 g/dL (6.0-8.3)
[2022-02-25 15:03] LABS: B-TYPE NATRIURETIC PEPTIDE 694 pg/mL (0-100)
[2022-02-25] MEDS ORDERED: POTASSIUM CHLORIDE 10% ELIXIR 20 MEQ/15 ML UDCUP PO PRN (15:30)
[2022-02-25] MEDS ORDERED: POTASSIUM CHLORIDE 20MEQ/100ML 100 ML IV PRN (15:30)
[2022-02-25] MEDS ORDERED: DEXTROSE 50%-WATER 50 ML DISP.SYRIN IV PRN (15:30)
[2022-02-25] MEDS ORDERED: LIDOCAINE HCL-MPF 1% 2ML VIAL IJ PRN (15:30)
[2022-02-25] MEDS ORDERED: KCL 20 MEQ ERTAB PO PRN (15:30)
[2022-02-25] MEDS ORDERED: ONDANSETRON 4MG INJ IV PRN (16:00)
[2022-02-25 16:03] LABS: HEMOGLOBIN A1C 9.4 % (4.0-6.0)
[2022-02-25] MEDS: INSULIN R PO SS1 SQ SCH ×2 (16:30→20:01)
[2022-02-25] MEDS ORDERED: MAGNESIUM 2GM PREMIX 50ML 50 ML IV ONE (17:12)
[2022-02-25] MEDS: FUROSEMIDE 20MG VIAL IV SCH (17:13)
[2022-02-25] MEDS ORDERED: NICOTINE 14 MG/ 24 HR PATCH TD SCH (19:00)
[2022-02-25] MEDS ORDERED: MAGNESIUM 2GM PREMIX 50ML 50 ML IV PRN (19:00)
[2022-02-25] MEDS: INSULIN LISPRO 100 UNIT/ML 3ML SQ SCH (20:01)
[2022-02-25] MEDS: FAMOTIDINE 20MG VIAL IV SCH (20:02)
[2022-02-25] MEDS: BISACODYL 5 MG TABLET.DR PO SCH (20:02)
[2022-02-25] MEDS: SPIRONOLACTONE 25 MG TAB PO SCH (20:02)
[2022-02-25] MEDS: ENOXAPARIN SODIUM 100 MG/1 ML SQ SCH (20:03)
[2022-02-25] MEDS: ATORVASTATIN 20 MG TABLET PO SCH (20:03)
[2022-02-25] MEDS ORDERED: DABIGATRAN 150MG CAPSULE PO SCH (21:00)
[2022-02-25] MEDS: METOPROLOL TARTRATE 1 MG/ML 5ML VIAL IV PRN ×3 (23:05→23:15)
[2022-02-26] VITALS (39 sets, daily range): BP systolic 96–150; BP diastolic 49–93
[2022-02-26] MEDS ORDERED: DILTIAZEM 125 MG/25 ML INJ 125 MG in 0.9%NACL 100ML 100 ML IV PRN ×2
[2022-02-26] MEDS ORDERED: DILTIAZEM 25MG INJ IVP PRN
[2022-02-26] MEDS ORDERED: DILTIAZEM 25MG INJ IVP ONE (00:02)
[2022-02-26] MEDS ORDERED: 0.9%NACL 100ML 100 ML ONE (00:03)
[2022-02-26] MEDS: FUROSEMIDE 20MG VIAL IV SCH ×3 (01:00→15:15)
[2022-02-26 03:53] LABS: BASOPHILS % (AUTO) 0.4 % (0.0-5.0); EOSINOPHILS % (AUTO) 3.2 % (0.0-8.0); HEMATOCRIT 49.3 % (42-54); LYMPHOCYTES % (AUTO) 24.9 % (21.0-51.0); MEAN CORPUSCULAR HEMOGLOBIN 29.6 pg (27.0-33.0); MEAN CORPUSCULAR HGB CONC 32.7 g/dL (32.0-36.0); MEAN CORPUSCULAR VOLUME 90.6 fL (79-99); MONOCYTES % (AUTO) 7.5 % (3.0-13.0); NEUTROPHILS % (AUTO) 63.8 % (40.0-77.0); PLATELET COUNT (AUTO) 199 K/uL (130-400); RED BLOOD CELL COUNT(AUTO) 5.44 MIL/uL (4.50-6.20); RED CELL DISTRIBUTION WIDTH 14.6 % (11.0-15.5); WHITE BLOOD COUNT (AUTO) 9.4 K/uL (4.8-10.8)
[2022-02-26 04:16] LABS: CREATININE 1.4 mg/dL (0.5-1.5); PHOSPHORUS 5.1 mg/dL (2.5-4.9); POTASSIUM 4.2 mmol/L (3.5-5.1)
[2022-02-26 04:22] LABS: B-TYPE NATRIURETIC PEPTIDE 532 pg/mL (0-100)
[2022-02-26] MEDS: INSULIN LISPRO 100 UNIT/ML 3ML SQ SCH ×7 (05:47→20:57)
[2022-02-26] MEDS: INSULIN R PO SS1 SQ SCH ×4 (06:44→20:58)
[2022-02-26] MEDS: LIDOCAINE HCL 2% VISCOUS 15 ML UDCUP PO SCH (09:00)
[2022-02-26] MEDS ORDERED: FENTANYL CITRATE PF 50 MCG/1 ML 2ML VIAL IVP ONE (09:00)
[2022-02-26] MEDS ORDERED: MIDAZOLAM HCL 5 MG/ML 2ML VIAL IV SCH (09:00)
[2022-02-26] MEDS ORDERED: MIDAZOLAM HCL 1 MG/ML 2ML VIAL ONE (09:01)
[2022-02-26] MEDS ORDERED: 0.9%NACL 1000ML 1,000 ML IV ONE (09:07)
[2022-02-26] MEDS: BISACODYL 5 MG TABLET.DR PO SCH ×2 (10:53→20:53)
[2022-02-26] MEDS: ENOXAPARIN SODIUM 100 MG/1 ML SQ SCH ×2 (10:53→20:58)
[2022-02-26] MEDS: DRONEDARONE HYDROCHLORIDE 400 MG TABLET PO SCH ×2 (10:53→20:53)
[2022-02-26] MEDS: FAMOTIDINE 20MG VIAL IV SCH ×2 (10:53→20:53)
[2022-02-26] MEDS: SPIRONOLACTONE 25 MG TAB PO SCH ×2 (10:53→20:54)
[2022-02-26] MEDS: METOPROLOL TARTRATE 50 MG TAB PO SCH ×2 (10:53→20:55)
[2022-02-26] MEDS: NICOTINE 14 MG/ 24 HR PATCH TD SCH (10:54)
[2022-02-26] MEDS: **HM**(Empagliflozin (Jardiance) 25 MG PO SCH (10:54)
[2022-02-26] MEDS: INSULIN GLARGINE 100 UNITS/ML 10 ML VIAL SQ SCH (10:55)
[2022-02-26] MEDS: ISOSORBIDE MONO 30MG SR TAB PO SCH (11:56)
[2022-02-26 15:43] LABS: % IRON SATURATION 31.4 % (30-44)
[2022-02-26] MEDS: ATORVASTATIN 20 MG TABLET PO SCH (20:54)
[2022-02-27] MEDS: FUROSEMIDE 20MG VIAL IV SCH (00:37)
[2022-02-27 04:08] VITALS: BP 125/80
[2022-02-27 04:20] LABS: BASOPHILS % (AUTO) 0.4 % (0.0-5.0); EOSINOPHILS % (AUTO) 1.9 % (0.0-8.0); HEMATOCRIT 47.8 % (42-54); LYMPHOCYTES % (AUTO) 22.8 % (21.0-51.0); MEAN CORPUSCULAR HEMOGLOBIN 29.4 pg (27.0-33.0); MEAN CORPUSCULAR HGB CONC 33.1 g/dL (32.0-36.0); MEAN CORPUSCULAR VOLUME 88.8 fL (79-99); MONOCYTES % (AUTO) 7.5 % (3.0-13.0); PLATELET COUNT (AUTO) 205 K/uL (130-400); RED BLOOD CELL COUNT(AUTO) 5.38 MIL/uL (4.50-6.20); RED CELL DISTRIBUTION WIDTH 14.6 % (11.0-15.5); WHITE BLOOD COUNT (AUTO) 10.2 K/uL (4.8-10.8)
[2022-02-27 04:29] LABS: CREATININE 1.8 mg/dL (0.5-1.5); POTASSIUM 4.2 mmol/L (3.5-5.1)
[2022-02-27] MEDS: INSULIN LISPRO 100 UNIT/ML 3ML SQ SCH ×4 (06:33→11:10)
[2022-02-27 07:04] VITALS: BP 115/75
[2022-02-27] MEDS: INSULIN R PO SS1 SQ SCH ×2 (07:30→11:06)
[2022-02-27] MEDS: LIDOCAINE HCL 2% VISCOUS 15 ML UDCUP PO SCH (08:41)
[2022-02-27] MEDS ORDERED: DABIGATRAN 150MG CAPSULE PO SCH (09:00)
[2022-02-27] MEDS ORDERED: METOPROLOL SUCCINATE 50 MG TAB.SR.24H PO SCH (09:00)
[2022-02-27] MEDS: NICOTINE 14 MG/ 24 HR PATCH TD SCH (09:00)
[2022-02-27] MEDS ORDERED: AMIODARONE 200 MG TABLET PO SCH (09:00)
[2022-02-27] MEDS: SPIRONOLACTONE 25 MG TAB PO SCH (09:01)
[2022-02-27] MEDS: **HM**(Empagliflozin (Jardiance) 25 MG PO SCH (09:02)
[2022-02-27] MEDS: ISOSORBIDE MONO 30MG SR TAB PO SCH (09:02)
[2022-02-27] MEDS: BISACODYL 5 MG TABLET.DR PO SCH (09:02)
[2022-02-27] MEDS: INSULIN GLARGINE 100 UNITS/ML 10 ML VIAL SQ SCH (09:03)
[2022-02-27] MEDS: FAMOTIDINE 20MG VIAL IV SCH (09:03)
[2022-02-27] MEDS ORDERED: METO-409 PO (11:21)
[2022-02-27] MEDS ORDERED: SPIR50TA5 PO (11:21)
[2022-02-27] MEDS ORDERED: ATOR40TA71 PO (11:21)
[2022-02-27] MEDS ORDERED: AMIO200T68 PO ×2 (11:21)
[2022-02-27] MEDS ORDERED: ISOS30TA92 PO (11:21)
== END 2022-02-27 12:00 | disposition home or self-care (01) | DRG 291 ==
LOC: EDH 13:54 → EDHIP 13:55 → 2BH 14:55 → 2AH 02-26 13:00
PROVIDERS: ADMIT Hospitalist; ATTEND Hospitalist
PROC: B24BZZ4 Ultrasonography of Heart with Aorta, Transesophageal (ICD-10-PCS; principal; 2022-02-26)
PROC: 5A2204Z Restoration of Cardiac Rhythm, Single (ICD-10-PCS; 2022-02-26)
DX: I11.0 Hypertensive heart disease with heart failure (principal); I50.23 Acute on chronic systolic (congestive) heart failure; I48.92 Unspecified atrial flutter; E44.0 Moderate protein-calorie malnutrition; D68.59 Other primary thrombophilia; E11.65 Type 2 diabetes mellitus with hyperglycemia; I25.5 Ischemic cardiomyopathy; I48.91 Unspecified atrial fibrillation; E78.5 Hyperlipidemia, unspecified; F17.200 Nicotine dependence, unspecified, uncomplicated; I25.10 Atherosclerotic heart disease of native coronary artery without angina pectoris; I25.2 Old myocardial infarction; Z79.01 Long term (current) use of anticoagulants; Z79.4 Long term (current) use of insulin; Z79.84 Long term (current) use of oral hypoglycemic drugs; Z79.899 Other long term (current) drug therapy; Z95.5 Presence of coronary angioplasty implant and graft; Z68.30 Body mass index [BMI] 30.0-30.9, adult
CPT/HCPCS: 36415; 71045; 80048; 80053; 82607; 82948; 82977; 83036; 83540; 83550; 83735; 83880; 84100; 84443; 84484; 85025; 92960; 93005; 93312; G0378; J1650; J1815; J1940; J2250; J3010; J3475; J3490; J7030

== ENCOUNTER 2023-03-20 22:07 | Emergency (ER) | payer MEDICARE, OTHER ==
[~2023-03-20] VITALS: Ht 167.6 cm; Wt 89.4 kg
[~2023-03-20 22:07] MED LIST changes: +AMIO200T68 PO; -ATOR20TA65 PO; +ATOR40TA71 PO; +ISOS30TA92 PO; -Isosorbide Mono 30MG Tab Sr PO; +METO-409 PO; -METO100T14 PO; +SPIR50TA5 PO
[2023-03-20] MEDS ORDERED: CLIN-141 PO (22:57)
[2023-03-20] MEDS ORDERED: CLINDAMYCIN 150 MG CAP PO ONE (23:00)
[2023-03-20] MEDS ORDERED: HYDROCODONE/ACETAMINOPHEN 5/325 MG TAB PO ONE (23:00)
[2023-03-20] MEDS ORDERED: IBUPROFEN 600 MG TABLET PO ONE (23:00)
[2023-03-20 23:17] VITALS: BP 179/89; PULSE 82; RESP 16; O2SAT 95
== END 2023-03-20 23:21 | disposition home or self-care (01) ==
LOC: EDH 22:07
DX: K02.9 Dental caries, unspecified (principal); I11.0 Hypertensive heart disease with heart failure; I50.9 Heart failure, unspecified; E11.9 Type 2 diabetes mellitus without complications; I25.2 Old myocardial infarction; E78.00 Pure hypercholesterolemia, unspecified; F17.200 Nicotine dependence, unspecified, uncomplicated; Z79.01 Long term (current) use of anticoagulants; Z79.84 Long term (current) use of oral hypoglycemic drugs; Z79.899 Other long term (current) drug therapy; Z95.5 Presence of coronary angioplasty implant and graft

== ENCOUNTER → 2023-06-01 | Outpatient (CLI) | payer OTHER ==
[~2023-06-01] MED LIST changes: +CLIN-141 PO
== END | disposition home or self-care (01) ==
LOC: RAH 13:59
PROVIDERS: ATTEND Internal Medicine Cardiovascular Disease
DX: J84.10 Pulmonary fibrosis, unspecified (principal); I25.10 Atherosclerotic heart disease of native coronary artery without angina pectoris; M47.815 Spondylosis without myelopathy or radiculopathy, thoracolumbar region
CPT/HCPCS: 71250

== ENCOUNTER → 2023-10-20 | Outpatient (CLI) | payer OTHER | END | disposition home or self-care (01) | LOC: SHCH 11:19 | PROVIDERS: ATTEND Internal Medicine Cardiovascular Disease | DX: I11.9 Hypertensive heart disease without heart failure (principal); I25.10 Atherosclerotic heart disease of native coronary artery without angina pectoris; R06.02 Shortness of breath; E11.9 Type 2 diabetes mellitus without complications | CPT/HCPCS: 93306 ==

== ENCOUNTER → 2024-03-10 | Outpatient (CLI) | payer OTHER | END | disposition home or self-care (01) | LOC: SHCH 13:01 | PROVIDERS: ATTEND Internal Medicine Cardiovascular Disease | DX: I65.23 Occlusion and stenosis of bilateral carotid arteries (principal); I73.9 Peripheral vascular disease, unspecified; I87.1 Compression of vein; I87.2 Venous insufficiency (chronic) (peripheral) | CPT/HCPCS: 93880; 93925; 93970 ==

== ENCOUNTER → 2024-04-20 | Outpatient (CLI) | payer OTHER ==
[2024-04-20 12:06] LABS: BASOPHILS # (AUTO) 0.04 K/uL (0.00-0.20); BASOPHILS % (AUTO) 0.4 % (0.0-5.0); EOSINOPHILS # (AUTO) 0.38 K/uL (0.00-0.70); EOSINOPHILS % (AUTO) 3.8 % (0.0-8.0); IMMATURE GRANULOCYTE ABSOLUTE 0.03 K/uL (0-1); LYMPHOCYTES # (AUTO) 1.7 K/uL (1.0-4.8); LYMPHOCYTES % (AUTO) 16.6 % (21.0-51.0); MEAN CORPUSCULAR HEMOGLOBIN 30.1 pg (27.0-33.0); MEAN CORPUSCULAR HGB CONC 32.8 g/dL (32.0-36.0); MEAN CORPUSCULAR VOLUME 91.6 fL (79-99); MONOCYTES # (AUTO) 1.1 K/uL (0.1-1.0); MONOCYTES % (AUTO) 10.4 % (3.0-13.0); NEUTROPHILS % (AUTO) 68.5 % (40.0-77.0); PLATELET COUNT (AUTO) 243 K/uL (130-400); RED BLOOD CELL COUNT(AUTO) 5.02 MIL/uL (4.50-6.20); RED CELL DISTRIBUTION WIDTH 12.9 % (11.0-15.5); WHITE BLOOD COUNT (AUTO) 10.1 K/uL (4.8-10.8)
[2024-04-20 12:22] LABS: CREATININE 1.4 mg/dL (0.5-1.3); POTASSIUM 5.2 mmol/L (3.5-5.1)
[2024-04-20 13:47] LABS: PARTIAL THROMBOPLASTIN TIME 28.8 SEC (26.3-35.5)
[2024-04-20 14:12] LABS: INR 1.01 (0.85-1.15); PROTHROMBIN TIME 10.9 SEC (9.6-11.6)
== END | disposition home or self-care (01) ==
LOC: LAB 09:14
PROVIDERS: ATTEND Internal Medicine Cardiovascular Disease
DX: Z01.812 Encounter for preprocedural laboratory examination (principal); I87.1 Compression of vein; I87.2 Venous insufficiency (chronic) (peripheral); I48.91 Unspecified atrial fibrillation
CPT/HCPCS: 36415; 80048; 85025; 85610; 85730

== ENCOUNTER → 2024-04-25 | Outpatient (CLI) | payer OTHER ==
[~2024-04-25] MED LIST changes: +IOHEXOL-350 75 ML VIAL IV ONE
== END | disposition home or self-care (01) ==
LOC: RAH 09:04
PROVIDERS: ATTEND Internal Medicine Cardiovascular Disease
DX: I65.23 Occlusion and stenosis of bilateral carotid arteries (principal); I25.10 Atherosclerotic heart disease of native coronary artery without angina pectoris; I70.0 Atherosclerosis of aorta
CPT/HCPCS: 70498; Q9967

== ENCOUNTER 2024-08-29 08:42 | Day surgery (SDC) | payer OTHER ==
[2024-08-24 09:03] VITALS: BP 140/71; PULSE 76; RESP 18; TEMP 97.5
[2024-08-24 09:34] LABS: BASOPHILS % (AUTO) 0.8 % (0.0-5.0); EOSINOPHILS % (AUTO) 2.5 % (0.0-8.0); HEMATOCRIT 45.3 % (42-54); IMMATURE GRANULOCYTE ABSOLUTE 0.06 K/uL (0-1); LYMPHOCYTES # (AUTO) 1.8 K/uL (1.0-4.8); LYMPHOCYTES % (AUTO) 15.1 % (21.0-51.0); MEAN CORPUSCULAR HEMOGLOBIN 29.6 pg (27.0-33.0); MEAN CORPUSCULAR HGB CONC 32.2 g/dL (32.0-36.0); MEAN CORPUSCULAR VOLUME 91.7 fL (79-99); MONOCYTES # (AUTO) 0.8 K/uL (0.1-1.0); MONOCYTES % (AUTO) 6.9 % (3.0-13.0); NEUTROPHILS # (AUTO) 8.8 K/uL (1.8-7.7); NEUTROPHILS % (AUTO) 74.2 % (40.0-77.0); PLATELET COUNT (AUTO) 307 K/uL (130-400); RED BLOOD CELL COUNT(AUTO) 4.94 MIL/uL (4.50-6.20); RED CELL DISTRIBUTION WIDTH 13.6 % (11.0-15.5); WHITE BLOOD COUNT (AUTO) 11.8 K/uL (4.8-10.8)
--- NOTE | 2024-08-24 09:40 | EKG ---
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1960 Requested By: SRINIVAS BACON Order Number: [id number] Reading MD: Srinivas Bacon Measurements Intervals [place] Rate: 74 P: 67 IN: 190 QRS: 130 QRSD: 90 T: 171 QT: 419 QTc: 467 Interpretive Statements Sinus rhythm Right axis deviation Nonspecific T abnormalities, lateral leads Compared to ECG 02/26/2022 09:54:06 Right-axis deviation now present T-wave abnormality now present Left posterior fascicular block no longer present Prolonged QT interval no longer present Electronically Signed On 08-24-2024 20:02:33 ULTRASOUND APPLICATIONS SPECIALIST by Srinivas Bacon Please click the below link to view image of tracing.
[2024-08-24 09:44] LABS: INR 0.96 (0.85-1.15); PROTHROMBIN TIME 10.8 SEC (9.6-11.6)
[2024-08-24 09:47] LABS: CREATININE 1.3 mg/dL (0.5-1.3); POTASSIUM 5.1 mmol/L (3.5-5.1)
--- NOTE | 2024-08-24 11:26 | HMCIMG ---
CHEST 1VW REASON: R COMPARISON: 05/01/2023 FINDINGS: There are mildly increased interstitial markings in both lungs most prominent in the lower lobes, this could represent early interstitial fibrosis. There are no acute appearing infiltrates. There are no nodules. Heart size is normal with no vascular congestion or effusion. IMPRESSION: 1. Findings suggesting no early or mild pulmonary fibrosis. 2. No acute finding.
--- NOTE | 2024-08-26 14:20 | NUR ---
RE: LABS REPORTED WBC 11.8 (PT ASYMPTOMATIC) TO [facility] BMP RESULTS. NO NEW ORDERS RECEIVED.
[2024-08-29] VITALS (9 sets, daily range): BP systolic 111–147; BP diastolic 67–90; PULSE 58–74; RESP 9–20; TEMP 97.2–97.7
[~2024-08-29] VITALS: Ht 167.6 cm; Wt 88.0 kg
[~2024-08-29 08:42] MED LIST changes: -AMIO200T68 PO; +ASPI-1443 PO; +CHOL100040 PO; -CLIN-141 PO; +CLOP75TA32 PO; -DABI150C PO; +DAPA5TAB PO; -EMPA25TA PO; +FOLI1TAB85 PO; +INSLAN SQ; -INSU100V12 SQ; -IOHEXOL-350 75 ML VIAL IV ONE; -METF-444 PO; +METF-446 PO; -SPIR50TA5 PO; +TAMS-1 PO; +VALS40TA11 PO
[2024-08-29] MEDS: 0.9%NACL 1000ML 1,000 ML IV SCH (09:30)
[2024-08-29] MEDS ORDERED: LIDOCAINE HCL 400MG/20ML VIAL ONE (11:33)
[2024-08-29] MEDS ORDERED: HEParin-NS 1,000 UNIT/500 ML 1,000 ML IV ONE (11:33)
[2024-08-29] MEDS ORDERED: NITROGLYCERIN 50MG VIAL ONE (11:34)
[2024-08-29] MEDS ORDERED: IODIXANOL 320 MG/ML 100 ML VIAL ONE (11:38)
[2024-08-29] MEDS ORDERED: MIDAZOLAM HCL 1 MG/ML 2ML VIAL ONE (11:49)
[2024-08-29] MEDS ORDERED: FENTanyl CITRate PF 50 MCG/1 ML 2ML VIAL ONE (11:49)
[2024-08-29] MEDS ORDERED: HEParin 10,000 UNIT/10ML (1,000 UNIT/ML) VIAL ONE (12:23)
--- NOTE | 2024-08-29 13:17 | PRN ---
Procedure Note INDICATION FOR PROCEDURE: [] Symptom limiting claudication Diabetic angiopathy Known peripheral arterial disease of InStent restenosis of left SFA stent of 75% and left popliteal artery of 75% PROCEDURE: [] Conscious sedation Abdominal aortogram with bilateral lower extremity runoffs 45 cm sheath from right common femoral artery placed into left superficial femoral artery with contrast injection and pressure measurement Left distal superficial femoral artery drug coated balloon angioplasty with the use of a 6 mm x 150 mm drug coated balloon to 6.37 mm Proximal left popliteal artery drug coated balloon angioplasty with the use of a 6 mm x 150 mm drug coated balloon deployed to 6.37 mm Selective right and left common carotid arteriography DATE OF PROCEDURE: August 29, 2024 DINING CAR HOP: Srinivas Bacon MERGED WITH [facility] PROCEDURE NOTE: [] Patient was electively brought to catheterization suite and prepped and draped in sterile fashion. An IV was started if not already in place in both groins were exposed for arterial access. 2% lidocaine was used for local anesthesia then a micropuncture kit was used to gain access and once verifying bottles and modified Seldinger technique was utilized to place a six Faroese sheath and with the right common femoral artery. Next the Omni flush catheter was then placed into the abdominal aorta pressure measurements were obtained and then an aortogram was performed. Access was used to direct a Glidewire down to the left SFA under fluoroscopic guidance. Next the Omni flush catheter was removed the six Faroese 10 cm sheath was removed and then a 45 cm six Faroese sheath was placed from the right common femoral artery and parked into the left superficial femoral artery. They are contrast injections was performed in addition to pressure measurements. Findings are as described below. Next a 6 mm x 150 mm drug coated balloon was then placed into the distal left SFA stent extending into the proximal left popliteal artery and was deployed for a total of 3 minutes at 12 atmospheres are 6.37 mm. Follow up contrast injection well no evidence of dissection or perforation with no significant residual stenosis noted. Runoff to left leg at end of case revealed two-vessel runoff still intact involving the left posterior tibial artery and left peroneal artery. Next the long sheath was replaced once more with a short sheath and then I placed a JR4 catheter into the right common carotid artery with images obtained and then into the left common carotid artery with images obtained. At end of case I did do a runoff to the right lower extremity through the sheath with findings as described below. Next Perclose device was used for closure of arteriotomy site and no complications occurred. FINDINGS: [] Bilateral common carotid arteries were noted to be patent. Right internal carotid artery had a 75% stenosis in its proximal segment Left internal carotid artery had a 70-75% stenosis in its proximal segment The abdominal aorta showed no evidence of aneurysmal changes present. Bilateral renal arteries were noted to be patent. Bilateral common iliac arteries were noted to be patent. Bilateral external and internal iliac arteries were noted to be patent. Bilateral common femoral arteries were noted to be patent. The stent noted in the right SFA did show some luminal irregularities but was patent and the right popliteal artery was also noted to be patent with single vessel runoff noted to the right foot via the right anterior tibial artery with a 100% occlusion noted of the right tibioperoneal trunk with reconstitution noted of the right posterior tibial artery and right peroneal artery seen. The distal left SFA stent had 75% in stent restenosis present which has been seen before and a proximal popliteal artery on the left had a 70-75% stenosis present as well. There was two-vessel runoff noted to the left foot via patent left AA posterior tibial artery and peroneal artery with an occluded left anterior tibial artery which reconstituted distally above the level of the ankle. IMPRESSION: [] Successful drug coated balloon angioplasty to the distal left SFA for InStent re stenosis and the proximal left popliteal artery with the use of a 6 mm by 150 mm Medtronic drug coated balloon deployed to 6.37 mm PLAN: [] Outpatient consultation with Dr. Wesly La for consideration of TCAR intervention to bilateral internal carotid artery stenoses SRINIVAS BACON MD Aug 29, 2024 13:17
[2024-08-29] MEDS ORDERED: DEXTROSE 50%-WATER 50 ML DISP.SYRIN IV PRN (13:30)
[2024-08-29] MEDS ORDERED: 0.9%NACL 1000ML 1,000 ML IV SCH (13:30)
[2024-08-29] MEDS ORDERED: GLUCAGON 1MG KIT 1 MG ML IM PRN (13:30)
[2024-08-29] MEDS ORDERED: INSULIN humuLIN R 100 UNIT/ML 3ML SQ SCH (16:30)
== END 2024-08-29 17:00 | disposition home or self-care (01) ==
LOC: DAH 08:42
PROVIDERS: ATTEND Internal Medicine Cardiovascular Disease
DX: I70.212 Atherosclerosis of native arteries of extremities with intermittent claudication, left leg (principal); E11.51 Type 2 diabetes mellitus with diabetic peripheral angiopathy without gangrene; I65.23 Occlusion and stenosis of bilateral carotid arteries; I10 Essential (primary) hypertension; E11.9 Type 2 diabetes mellitus without complications; I25.10 Atherosclerotic heart disease of native coronary artery without angina pectoris; I77.9 Disorder of arteries and arterioles, unspecified; T82.856A Stenosis of peripheral vascular stent, initial encounter; Z79.899 Other long term (current) drug therapy; Z79.84 Long term (current) use of oral hypoglycemic drugs; Z79.82 Long term (current) use of aspirin; Y71.8 Miscellaneous cardiovascular devices associated with adverse incidents, not elsewhere classified; Y92.89 Other specified places as the place of occurrence of the external cause
CPT/HCPCS: 80048; 85025; 85610; 85730; 36415; 71045; 93005; 36222; 75625; 75716; 37224; 82948 ×2; A4223 ×3; C1769; C1894 ×2; C1760; C1893; C2623; J3010; J3490 ×2; J7030; J1644 ×2; J2250; Q9967; A4215; A4222; A4221; A4663; A4216; A4606; 36223; 99156; 99157

== ENCOUNTER → 2024-10-27 | Outpatient (CLI) | payer OTHER ==
[2024-10-27 16:24] LABS: CREATININE 1.6 mg/dL (0.5-1.3); POTASSIUM 5.6 mmol/L (3.5-5.1)
== END | disposition home or self-care (01) ==
LOC: LAB 13:38
PROVIDERS: ATTEND Internal Medicine Cardiovascular Disease
DX: I65.23 Occlusion and stenosis of bilateral carotid arteries (principal)
CPT/HCPCS: 36415; 80048

== ENCOUNTER 2025-01-09 06:07 | Day surgery (SDC) | payer OTHER ==
[2025-01-06 10:58] LABS: BASOPHILS # (AUTO) 0.04 K/uL (0.00-0.20); BASOPHILS % (AUTO) 0.3 % (0.0-5.0); EOSINOPHILS # (AUTO) 0.23 K/uL (0.00-0.70); EOSINOPHILS % (AUTO) 1.5 % (0.0-8.0); HEMATOCRIT 44.1 % (42-54); IMMATURE GRANULOCYTE ABSOLUTE 0.15 K/uL (0-1); LYMPHOCYTES # (AUTO) 2.6 K/uL (1.0-4.8); LYMPHOCYTES % (AUTO) 16.6 % (21.0-51.0); MEAN CORPUSCULAR HEMOGLOBIN 30.3 pg (27.0-33.0); MEAN CORPUSCULAR HGB CONC 33.6 g/dL (32.0-36.0); MEAN CORPUSCULAR VOLUME 90.2 fL (79-99); MONOCYTES # (AUTO) 1.1 K/uL (0.1-1.0); MONOCYTES % (AUTO) 6.9 % (3.0-13.0); NEUTROPHILS # (AUTO) 11.4 K/uL (1.8-7.7); NEUTROPHILS % (AUTO) 73.7 % (40.0-77.0); PLATELET COUNT (AUTO) 256 K/uL (130-400); RED BLOOD CELL COUNT(AUTO) 4.89 MIL/uL (4.50-6.20); RED CELL DISTRIBUTION WIDTH 13.2 % (11.0-15.5); WHITE BLOOD COUNT (AUTO) 15.5 K/uL (4.8-10.8)
[2025-01-06 11:03] LABS: CREATININE 1.6 mg/dL (0.5-1.3); POTASSIUM 4.4 mmol/L (3.5-5.1)
--- NOTE | 2025-01-06 11:03 | EKG ---
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
[2025-01-06 11:04] LABS: ADD UA MICROSCOPIC YES; APPEARANCE,URINE CLEAR (CLEAR); BILIRUBIN,URINE NEGATIVE (NEGATIVE); COLOR,URINE LIGHT-YELLOW (YELLOW); GLUCOSE, URINE (UA) >=1000 mg/dL (NEGATIVE); KETONES,URINE NEGATIVE (NEGATIVE); LEUKOCYTE ESTERASE ,URINE NEGATIVE Leu/uL (NEGATIVE); NITRATE,URINE NEGATIVE (NEGATIVE); OCCULT BLOOD,URINE MODERATE (NEGATIVE); PROTEIN,URINE 300 mg/dL (NEGATIVE); UROBILINOGEN,URINE 0.2 mg/dL (0.2-1.0)
[2025-01-06 11:06] LABS: MUCUS,URINE RARE LPF (None Seen); WBC,URINE 0-1 /HPF (0-1)
[2025-01-06 11:08] VITALS: BP 167/85; PULSE 74; RESP 17; TEMP 98.1
[2025-01-06 11:23] LABS: B-TYPE NATRIURETIC PEPTIDE 546 pg/mL (0-100)
[2025-01-06 11:30] LABS: INR 0.97 (0.85-1.15); PROTHROMBIN TIME 10.3 SEC (9.6-11.6)
[2025-01-06 11:31] LABS: PARTIAL THROMBOPLASTIN TIME 26.2 SEC (26.3-35.5)
--- NOTE | 2025-01-06 12:12 | HMCIMG ---
Exam Type: CHEST 1VW Clinical Information: PREOP Comparison: None Findings: The lungs are clear of infiltrates. The heart is enlarged. Bony and soft tissue structures of the chest wall are unremarkable. IMPRESSION: Cardiomegaly. Clear lungs.
--- NOTE | 2025-01-06 14:06 | NUR ---
RE: LABS REPORTED BMP/CBC RESULTS TO JJ CAMPA NP. PATIENT ASYMPTOMATIC, RECEIVED ORDERS TO REPEAT CBC/BMP IN AM AND START NS AT 75ML/HR UPON ARRIVAL.
[~2025-01-09] VITALS: Ht 165.1 cm; Wt 85.2 kg
[2025-01-09] VITALS (10 sets, daily range): BP systolic 110–143; BP diastolic 60–79; PULSE 64–99; RESP 10–25; TEMP 97.2–97.9
[~2025-01-09 06:07] MED LIST changes: +BUPR100T13 PO; -CHOL100040 PO; +DAPA10TA PO; -DAPA5TAB PO; +DONE5TAB33 PO; -FOLI1TAB85 PO; +HYDR25TA67 PO; -SEMA1PEN3 SQ; +SEMA1SYR SQ; -TAMS-1 PO; +TAMS-55 PO
[2025-01-09] MEDS: 0.9%NACL 1000ML 1,000 ML IV SCH (06:41)
[2025-01-09 07:01] LABS: BASOPHILS # (AUTO) 0.04 K/uL (0.00-0.20); BASOPHILS % (AUTO) 0.3 % (0.0-5.0); EOSINOPHILS % (AUTO) 1.4 % (0.0-8.0); HEMATOCRIT 40.9 % (42-54); IMMATURE GRANULOCYTE ABSOLUTE 0.13 K/uL (0-1); LYMPHOCYTES # (AUTO) 1.4 K/uL (1.0-4.8); LYMPHOCYTES % (AUTO) 9.7 % (21.0-51.0); MEAN CORPUSCULAR HEMOGLOBIN 30.3 pg (27.0-33.0); MEAN CORPUSCULAR HGB CONC 34.5 g/dL (32.0-36.0); MEAN CORPUSCULAR VOLUME 87.8 fL (79-99); MONOCYTES # (AUTO) 0.5 K/uL (0.1-1.0); MONOCYTES % (AUTO) 3.8 % (3.0-13.0); NEUTROPHILS # (AUTO) 11.8 K/uL (1.8-7.7); NEUTROPHILS % (AUTO) 83.9 % (40.0-77.0); PLATELET COUNT (AUTO) 225 K/uL (130-400); RED BLOOD CELL COUNT(AUTO) 4.66 MIL/uL (4.50-6.20); RED CELL DISTRIBUTION WIDTH 13.2 % (11.0-15.5); WHITE BLOOD COUNT (AUTO) 14.1 K/uL (4.8-10.8)
[2025-01-09 07:06] LABS: CREATININE 1.5 mg/dL (0.5-1.3); POTASSIUM 4.1 mmol/L (3.5-5.1)
[2025-01-09] MEDS ORDERED: levoFLOXacin 500 MG/D5W 100 ML 100 ML ONE (07:30)
[2025-01-09] MEDS ORDERED: HEParin-NS 1,000 UNIT/500 ML 1,000 ML IV ONE (07:34)
[2025-01-09] MEDS ORDERED: HEParin 10,000 UNIT/10ML (1,000 UNIT/ML) VIAL ONE (07:34)
[2025-01-09] MEDS ORDERED: LIDOCAINE HCL 400MG/20ML VIAL ONE (07:34)
[2025-01-09] MEDS ORDERED: SODIUM BICARB 50MEQ 50ML VIAL 50 ML ONE (07:34)
[2025-01-09] MEDS ORDERED: NITROGLYCERIN 50MG VIAL ONE (07:34)
[2025-01-09] MEDS ORDERED: niCARDIpine 25MG INJ IV ONE (07:34)
[2025-01-09] MEDS ORDERED: IOHEXOL 350 MG/ML 100ML INFUS..BTL IV ONE ×2 (07:35→10:49)
[2025-01-09] MEDS ORDERED: FENTanyl CITRate PF 50 MCG/1 ML 2ML VIAL ONE (07:48)
[2025-01-09] MEDS ORDERED: MIDAZOLAM HCL 1 MG/ML 2ML VIAL ONE ×2 (07:49→07:59)
[2025-01-09] MEDS ORDERED: HEParin-NS 1,000 UNIT/500 ML 500 ML IV ONE (08:47)
[2025-01-09] MEDS ORDERED: DEXTROSE 50%-WATER 50 ML DISP.SYRIN IV PRN (09:30)
[2025-01-09] MEDS ORDERED: GLUCAGON 1MG KIT 1 MG ML IM PRN (09:30)
[2025-01-09] MEDS: INSULIN humuLIN R 100 UNIT/ML 3ML SQ ONE (09:52)
--- NOTE | 2025-01-09 10:10 | CCATH ---
PROCEDURE NOTE PROCEDURES: * Left heart catheterization. * Selective diagnostic right and left coronary arteriogram. * Balloon angioplasty and stent placement in the LAD. * IFR of the circumflex marginal branch. * Conscious sedation for 60 minutes. INDICATIONS: * Known history of coronary artery disease. * Status post remote multivessel stenting. * Recurrent angina. * Abnormal Lexiscan Cardiolite. * Bilateral carotid stenosis, in anticipation of an interventional procedure. COMPLICATIONS: None. TOTAL CONTRAST: 70 mL. DESCRIPTION OF PROCEDURE: The patient was taken to the cardiac catheterization lab after appropriate operative consents were signed. It was prepped and draped in the usual fashion. After conscious sedation was administered, the right radial artery region was infiltrated with 2% Xylocaine without epinephrine. A 6-Malawian radial slender sheath was advanced in a retrograde fashion following modified Seldinger technique over an indwelling wire. At this point, a TIG-4 catheter was advanced over an indwelling wire. It was placed in the left ventricular cavity. Left ventricular end-diastolic pressure measurement was obtained. Unfortunately, this was in excess of 20 to 25. Given that, the ventriculography was deferred. Moreover, the patient has chronic kidney disease stage 3. Pull back revealed no significant aortic stenosis. At this point, the catheter was advanced and engaged in the ostium of the right coronary artery. This vessel was imaged in multiplane. The right coronary artery was a moderately sized vessel. It had a stent in its proximal to mid portion that was chronically deployed. This was patent; however, at the distal edge, there was a hazy 80% stenotic lesion in a candy wrapper fashion. The acute marginal branch was patent. The distal RCA was patent. The PDA was a moderately sized vessel and had an 80% to 90% ostial lesion. The catheter was engaged in the left main; however, it did not seat well, so we elected to use a 3.0 left coronary FL guide catheter. This was selectively engaged in the ostium of the left main. Imaging was obtained in multiplane. The left main was a moderately sized vessel that was free of disease and bifurcated LAD and circumflex. The LAD was a large vessel that gave rise to several diagonals and septal perforators. The LAD had a heavily calcified lesion in the proximal to mid segment traversing the origin of the first diagonal. It had a rating of 80% to 90%. The apical LAD also had a 90% stenotic lesion. The diagonal one was small and had tandem 90% stenotic lesions. Circumflex coronary artery essentially consisted of one single obtuse marginal branch that was branching into three separate branches. There was a stent in the main body of the obtuse marginal branch and there was a 60% in-stent restenosis in the proximal portion. The distal portion of that OM had 3 branches, 2 of which were patent and one was 100% occluded and had been occluded on a chronic basis by prior studies. At this point, the decision was made to proceed with an intervention on the LAD. 0.014 wire was selected and placed in the distal circulation. We elected to pre-dilate the vessel with an NC balloon 3.0 given the degree of calcification. This was followed by placement of a 3.0 x 30 [place] stent, which was placed overlapping the origin of the first diagonal. The stent was deployed to normal pressures and the NC balloon was then re-advanced and inflated to 20 atmospheres, which was measured at 3.13 mm in size. The final angiographic result was good on the LAD. At this point, I elected to proceed with an IFR of the circ OM branch. This was performed and we had two separate readings, both of which were more than 0.95. Given that, I elected not to intervene on the circumflex. Given the chronic kidney disease and elevated LV end-diastolic pressure, I elected to continue with conservative management for the right coronary artery and manage the patient medically. This was done to conserve contrast. The patient will have his RCA and PDA addressed in a different setting. It was noted that the patient had significant calcification in the posterior segment of the left ventricle. This may be due to pericardial calcification, but more than likely due to myocardial calcification from prior infarction. FINAL IMPRESSION: * Severe three-vessel coronary artery disease. * Patent RCA stent with distal edge ____ 80% lesion. * Patent circumflex OM stent with 60% proximal in-stent restenosis and IFR of 0.95. * Status post successful angioplasty and stent placement in the LAD with a 3.0 x 30 [place] post dilated with a 3.0 x 20 NC balloon to 20 atmospheres at 3.13 mm in size with good final angiographic results. PLAN: The patient was stable throughout the procedure. The catheter was withdrawn over an indwelling wire. Radial band was applied after withdrawal of the radial sheath. 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 TID: [id number] RECEIPT: [id number]
--- NOTE | 2025-01-09 12:10 | NUR ---
VASC BAND: VASC BAND REMOVED WITH NO ACTIVE BLEEDING PRESENT. CLEANSED AREA WITH CHLORAPREP FOLLOWED BY APPLYING STERILE 2X2 GAUZE THEN 2X2 TEGADERM. NO REDNESS/SWELLING NOTED TO SURROUNDING AREA RT WRIST.
--- NOTE | 2025-01-10 01:01 | HMCSR ---
APPROVED REPORT EXAM: Two-dimensional and M-mode echocardiogram with Doppler and color Doppler. INDICATION ICD: Heart Failure 2D Dimensions RVDd4.7 cmLVEF(%)60.3 (>50%)LVED Vol(simp.)114.0 mL IVSd1.1 (0.7-1.1cm)FS(%)32 %LVES Vol(simp.)52.0 mL LVDd3.7 (3.8-5.6cm)LA (2D)3.7 (1.6-4.0cm)LVEF(%, simp.)55 % PWd1.0 (0.7-1.1cm)Ao Root(2D)2.7 (2.0-3.7cm)LA ESV INDEX (BP)28.13 mL/m2 LVDs2.5 (2.5-4.0cm)LVOT diam2.0 (1.8-2.4cm) IVC diam2.2 cm Deformation Strain Apical 4-12.4 % Apical 2-11.0 % Apical 3-10.0 % Global Strain-11.1 % M-Mode Dimensions EPSS1.1 cm LA (MM)2.8 (1.6-4.0cm) Ao Root(MM)3.1 (2.0-3.7cm) Aortic Valve AoV Vmax1.2 m/Eva Peak GR5.6 mmHgLVOT Vmax1.0 m/s AoV VTI0.3 mAo Mean GR3.2 mmHgLVOT VTI0.22 m ISAAC (VMAX)2.49 cm2AVA (VTI) 2.3 cm2 Mitral Valve MV E Vmax94.7 cm/sDECEL Mdvs466 ms MV A Vmax46.7 cm/sP 1/2 T118 ms E/A ratio2.0MVA (PHT)1.9 cm2 TDI E/E' Abnwzf02.1E/E' Lmdymvn27.5 Medial E' Peak V4.29 cm/sLateral E' Peak V4.61 cm/s Tricuspid Valve TR Vmax2.1 m/sRVSP18.3 mmHg TR Peak GR18.3 mmHg Left Ventricle The left ventricle is normal size. The basal/mid/apical inferior and inferior lateral rojas are hypok inetic. The other rojas are grossly normal in function. Mild concentric left ventricular hypertrophy. Left ventricle systolic function is mildly depressed, estimated LVEF 45%. Grade 3 diastolic dysfunct ion. Right Ventricle The right ventricle is mildly dilated. Right ventricle systolic function is low normal, TAPSE 16 mm. Atria The left atrium size is normal. The right atrium size is normal. Aortic Valve Aortic valve is trileaflet. The leaflets are mildly thickened and calcified. Trace aortic regurgitati on. There is no aortic valvular stenosis. Mitral Valve The mitral valve is normal in structure. The leaflets are mildly thickened and calcified. Trace jasen l regurgitation. There is no mitral valve stenosis. Tricuspid Valve The tricuspid valve is normal in structure. Trace tricuspid regurgitation. RVSP is 18 mmHg. Pulmonic Valve Pulmonic valve is not well visualized. Great Vessels The aortic root is normal in size. IVC is dilated and collapses <50% with inspiration. Pericardium There is no pericardial effusion. Conclusion The cardiac chambers are normal in size. Mild concentric left ventricular hypertrophy. The basal/mid/apical inferior and inferior lateral rojas are hypokinetic. The other rojas are grossl y normal in function. Left ventricle systolic function is mildly depressed, estimated LVEF 45%. Grade 3 diastolic dysfunction. Trace aortic regurgitation. Trace mitral regurgitation. Trace tricuspid regurgitation. PASP is 33 mmHg. There is no pericardial effusion.
== END 2025-01-09 13:05 | disposition home or self-care (01) ==
LOC: DAH 06:07
PROVIDERS: ATTEND Internal Medicine Cardiovascular Disease
DX: R94.39 Abnormal result of other cardiovascular function study (principal); I25.118 Atherosclerotic heart disease of native coronary artery with other forms of angina pectoris; I25.84 Coronary atherosclerosis due to calcified coronary lesion; T82.855A Stenosis of coronary artery stent, initial encounter; I13.0 Hypertensive heart and chronic kidney disease with heart failure and stage 1 through stage 4 chronic kidney disease, or unspecified chronic kidney disease; E11.22 Type 2 diabetes mellitus with diabetic chronic kidney disease; N18.30 Chronic kidney disease, stage 3 unspecified; I50.23 Acute on chronic systolic (congestive) heart failure; I65.23 Occlusion and stenosis of bilateral carotid arteries; I25.5 Ischemic cardiomyopathy; I73.9 Peripheral vascular disease, unspecified; I87.2 Venous insufficiency (chronic) (peripheral); I87.1 Compression of vein; I42.9 Cardiomyopathy, unspecified; I25.2 Old myocardial infarction; I77.9 Disorder of arteries and arterioles, unspecified; I48.92 Unspecified atrial flutter; J84.10 Pulmonary fibrosis, unspecified; I48.91 Unspecified atrial fibrillation; J44.9 Chronic obstructive pulmonary disease, unspecified; E66.9 Obesity, unspecified; Z79.899 Other long term (current) drug therapy; Z95.5 Presence of coronary angioplasty implant and graft; Z79.82 Long term (current) use of aspirin; Z79.84 Long term (current) use of oral hypoglycemic drugs; Z68.30 Body mass index [BMI] 30.0-30.9, adult; Z72.0 Tobacco use; Y71.8 Miscellaneous cardiovascular devices associated with adverse incidents, not elsewhere classified; Y92.89 Other specified places as the place of occurrence of the external cause
CPT/HCPCS: 80048 ×2; 83880; 85025 ×2; 85610; 85730; 81001; 36415 ×2; 71045; 93005; 93458; 93571; 99156; 99157 ×3; 85347; 82948 ×2; 93306; J1815; A4223 ×3; C1769 ×3; C1725; C1874; C1887; A4649; C1894; Q9965; J3010; J3490 ×4; J1956; J7030; J1644 ×3; J2250 ×2; Q9967; A4215; A4222; A4221; A4663; A4216; A4606; C9600; 96360

== ENCOUNTER → 2025-02-27 | Emergency (ER) | payer OTHER ==
[~2025-02-27] VITALS: Ht 167.6 cm; Wt 86.2 kg
[~2025-02-27] MED LIST changes: +CLIN-141 PO
[2025-02-27 15:28] LABS: IMMATURE GRANULOCYTE ABSOLUTE 0.09 K/uL (0-1); NUCLEATED RED BLOOD CELLS 0.0 % (0.0-0.19); PLATELET COUNT (AUTO) 240 K/uL (130-400); RED BLOOD CELL COUNT(AUTO) 3.87 MIL/uL (4.50-6.20); RED CELL DISTRIBUTION WIDTH 13.3 % (11.0-15.5); WHITE BLOOD COUNT (AUTO) 12.2 K/uL (4.8-10.8)
[2025-02-27 15:46] LABS: ASPARTATE AMINOTRANSFERASE 23.0 U/L (10-37); CREATININE 2.4 mg/dL (0.5-1.3); GLOMERULAR FILTR. RATE CALC 30.0 mL/min (>90); GLUCOSE,RANDOM 351.0 mg/dL (70-105); SODIUM SERUM 137.0 mmol/L (136-145); TOTAL PROTEIN, SERUM 6.0 g/dL (6.0-8.3); UREA NITROGEN, BLOOD 54.0 mg/dL (7-18)
--- NOTE | 2025-02-27 16:19 | ERN ---
ED Note History of Present Illness Stated Complaint: LLE PAIN Chief Complaint: Lower Extremity Pain/Injury Time Seen by MD: 15:21 Time Seen by Midlevel: 15:22 Dictation: 64-year-old male who presents to the emergency department due to reported having pain to the left lower leg that began approximately 2 weeks ago. He states that he had a blister that burst it approximately 4 days ago. Patient states that since then the pain has been almost continuous. At this time, he rates the pain as a 7/10. He denies having sustained any trauma to the affected area. There is no report of any fever or chills associated with this. Upon initial evaluation, the patient presents with a normal neurovascular examination. 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 Home Meds Reported Medications Metformin HCl (Metformin HCl) 1,000 Mg Tablet, 1000 MG PO DAILY, TAB 01/06/25 Bupropion HCl (Bupropion HCl) 100 Mg Tablet, 200 MG PO BID, TAB 01/06/25 Donepezil HCl (Donepezil HCl) 5 Mg Tablet, 5 MG PO HS, TAB 01/06/25 Hydralazine HCl (Hydralazine HCl) 25 Mg Tablet, 25 MG PO DAILY, TAB 01/06/25 Dapagliflozin Propanediol (Farxiga) 10 Mg Tablet, 10 MG PO DAILY, TAB 01/06/25 Semaglutide (Semaglutide) 1 Mg/0.2 Ml Syringe, 1 MG SQ QWEEK, SYRINGE Thursday01/06/25 Insulin Glargine,Hum.rec.anlog (Lantus) 100 Unit/Ml Inj, 25 UNITS SQ DAILY, ML 08/24/24 Tamsulosin HCl (Flomax) 0.4 Mg Cap.er.24h, 0.4 MG PO DAILY, CAPSULE.DR 08/24/24 Valsartan (Valsartan) 40 Mg Tablet, 40 MG PO DAILY, TAB 08/24/24 Atorvastatin Calcium (Atorvastatin Calcium) 40 Mg Tablet, 40 MG PO HS, TAB 08/24/24 Aspirin (Aspirin EC) 81 Mg Tablet.dr, 81 MG PO DAILY, TAB 08/24/24 Metoprolol Succinate (Metoprolol Succinate) 100 Mg Tab.er.24h, 100 MG PO BID, TAB 08/24/24 Isosorbide Mononitrate (Isosorbide Mononitrate ER) 30 Mg Tab.er.24h, 60 MG PO DAILY, TAB 08/24/24 Clopidogrel Bisulfate (Clopidogrel) 75 Mg Tablet, 75 MG PO DAILY, TAB 08/24/24 Furosemide (Furosemide) 40 Mg Tablet, 40 MG PO AM, TAB 02/10/22 Past Medical History Past Medical History: CHF, Diabetes-Type II, High Cholesterol, Hypertension, [place], Other Additional Past Medical Hx: BPH Surgical History: Other Surgical History Other: CARDIAC STENTS Family History: CAD, DM, HTN Social History: Smokers, ETOH RN Note Reviewed/Agreed w/PFSH: Yes Review of System Dictation MS/Extremity: Pain left lower leg Skin: Wound left lower leg Initial Vital Sign VS Vital Signs Date Time Temp Pulse Resp B/P (MAP) Pulse Ox O2 Delivery O2 Flow Rate FiO2 02/27/25 14:29 98.1 83 16 112/66 97 Room Air 0 02/27/25 15:35 21 Physical Exam Dictation General: awake, alert, NAD Head/Face: Normocephalic, atraumatic Eyes: PERRL, EOMI ENT: Oral mucosa moist Neck: Trachea midline, supple Cardiovascular: RRR, no edema Respiratory: Symmetrical, non-labored Abdomen: Soft, non-tender, non-distended, no guarding. Skin: Warm, open excoriated area measuring approximately 10 cm x 4 cm MS/Extremity: Pulses equal, no cyanosis, neurovascular intact, FROM Neuro: COAx4, GCS 15, steady gait, Psych: Normal behavior, mood, and affect normal Results (Laboratory/Radiology) Laboratory/Radiology Laboratory Tests Test 02/27/25 15:25 02/27/25 18:38 02/27/25 19:46 White Blood Count 12.2 K/uL (4.8-10.8) H Red Blood Count 3.87 MIL/uL (4.50-6.20) L Hemoglobin 11.4 g/dL (14.0-18.0) L Hematocrit 35.8 % (42-54) L Mean Corpuscular Volume 92.5 fL (79-99) Mean Corpuscular Hemoglobin 29.5 pg (27.0-33.0) Mean Corpuscular Hemoglobin Concent 31.8 g/dL (32.0-36.0) L Red Cell Distribution Width 13.3 % (11.0-15.5) Platelet Count 240 K/uL (130-400) Mean Platelet Volume 9.9 fL (7.5-10.5) Immature Granulocyte % (Auto) 0.7 % (0-1) Neutrophils (%) (Auto) 69.8 % (40.0-77.0) Lymphocytes (%) (Auto) 18.4 % (21.0-51.0) L Monocytes (%) (Auto) 8.9 % (3.0-13.0) Eosinophils (%) (Auto) 1.8 % (0.0-8.0) Basophils (%) (Auto) 0.4 % (0.0-5.0) Neutrophils # (Auto) 8.5 K/uL (1.8-7.7) H Lymphocytes # (Auto) 2.2 K/uL (1.0-4.8) Monocytes # (Auto) 1.1 K/uL (0.1-1.0) H Eosinophils # (Auto) 0.22 K/uL (0.00-0.70) Basophils # (Auto) 0.05 K/uL (0.00-0.20) Absolute Immature Granulocyte (auto 0.09 K/uL (0-1) Nucleated Red Blood Cells 0.0 % (0.0-0.19) Erythrocyte Sedimentation Rate 103 MM/HR (0-20) H Sodium Level 137 mmol/L (136-145) 139 mmol/L (136-145) Potassium Level 5.9 mmol/L (3.5-5.1) H 5.3 mmol/L (3.5-5.1) H Chloride Level 106 mmol/L (101-111) 110 mmol/L (101-111) Carbon Dioxide Level 23 mmol/L (21-32) 20 mmol/L (21-32) L Blood Urea Nitrogen 54 mg/dL (7-18) H 48 mg/dL (7-18) H Creatinine 2.4 mg/dL (0.5-1.3) H 2.1 mg/dL (0.5-1.3) H Glomerular Filtration Rate Calc 30 mL/min (>90) 35 mL/min (>90) Random Glucose 351 mg/dL (70-105) H 114 mg/dL (70-105) #H Total Calcium 8.4 mg/dL (8.5-10.1) L 8.1 mg/dL (8.5-10.1) L Total Bilirubin 0.1 mg/dL (0.2-1.0) L Aspartate Amino Transf (AST/SGOT) 23 U/L (10-37) Alanine Aminotransferase (ALT/SGPT) 25 U/L (12-78) Alkaline Phosphatase 126 U/L (50-136) C-Reactive Protein, Quantitative 4.00 mg/L (0.5-3.0) H Total Protein 6.0 g/dL (6.0-8.3) Albumin 2.0 g/dL (3.5-5.0) L Blood Gas Specimen Type Arterial Arterial Blood pH 7.335 (7.350-7.450) Arterial Blood Partial Pressure CO2 32 mmHg (35-48) L Arterial Blood Partial Pressure O2 101.2 mmHg (83.0-108.0) Arterial Blood HCO3 16.6 mmol/L (21.0-28.0) L Arterial Blood Oxygen Saturation 97.4 % (94.0-98.0) Arterial Blood Base Excess -8.0 mmol/L (-2.0-3.0) L Blood Gas Temperature 37.0 CELSIUS (35.5-37.0) Blood Gas Vent Mode RA (ROOM AIR) FiO2 21.0 % Blood Gas Specimen Comment RR RN Whole Blood Ketones Quantitative < 0.1 mmol/L (0.0-0.6) Labs Reviewed?: Yes X-RAY Comment: Three-view x-ray of the left foot with no cortical anomalies or deformities as interpreted by me. ED Course ED Course Orders Procedure Category Date Status Time Cbc With Differential LAB 02/27/25 Complete 15:15 Comprehensive LAB 02/27/25 Complete Metabolic Panel 15:15 Erythrocyte LAB 02/27/25 Complete Sedimentation Rate 15:15 Crp Quantitative LAB 02/27/25 Complete 15:15 Tibia/Fibula 2vws Lt RAD 02/27/25 Resulted 15:15 Arterial Blood Gas RT 02/27/25 Transmitted 17:59 Basic Metabolic Panel LAB 02/27/25 Complete 17:59 Ketone Blood LAB 02/27/25 Complete Quantitative 17:59 Insulin Regular, PHA 02/27/25 Complete Human 3ml (Humulin R 18:00 0.9%Nacl 1000ml (Ns PHA 02/27/25 Complete 1000ml) 18:00 Insulin Regular, PHA 02/27/25 Complete Human 3ml (Humulin R 18:06 Arterial Blood Gas LAB 02/27/25 Complete 18:38 Current Medications Medications (Trade) Dose Ordered Sig/Dina Route PRN Reason Start Time Stop Time Status Last Admin Dose Admin Insulin Human Regular (humuLIN R 100 UNIT/ML 3ML) 6 unit ONCE ONCE IV 02/27/25 18:00 02/27/25 18:04 DC 02/27/25 18:08 Insulin Human Regular (humuLIN R 100 UNIT/ML 3ML) 300 unit STK-MED ONCE .ROUTE 02/27/25 18:06 02/27/25 18:06 DC Sodium Chloride 1,000 ml @ 0 mls/hr ONCE ONCE IV 02/27/25 18:00 02/27/25 18:04 DC 02/27/25 18:07 Vital Signs Date Time Temp Pulse Resp B/P (MAP) Pulse Ox O2 Delivery O2 Flow Rate FiO2 02/27/25 20:37 98.2 75 18 125/65 97 Room Air* 0 02/27/25 17:16 74 18 120/69 97 Room Air* 0 02/27/25 15:35 77 18 121/68 97 Room Air* 0 02/27/25 14:29 98.1 83 16 112/66 97 Room Air 0 Medical Decision Making MDM MDM: Differential diagnosis: Cellulitis, local skin infection, electrolyte imbalance, diabetes with hyperglycemia Rationale: Tests considered and ordered secondary to shared decision making include: Previous outside records reviewed: Old ER visits. Risk of complication and/or morbidity or mortality of patient management: None Medications-Per medication reconciliation Need for hospitalization: Patient does not meet criteria for hospitalization. Need for emergency major/minor surgery: No There are no social concerns with this patient. Prescription drug management Prescriptions will include symptomatic care Patient's prior external medical records from other ER visits were reviewed by me as indicated. Prior testing and results from previous visits were reviewed. Prior tests were taken into account with medical decision making and resource utilization, independent historian/historians were used to obtain complete medical history. I independently interpreted the test that were performed, results were reviewed by me and considered findings on radiology if ordered. Medical management and examination interpretation discussions were had by me with other qualified healthcare professionals as indicated for the patient's care. DX & DISP Disposition: Discharge (A 7 days removed) Departure Impression: Primary Impression: Cellulitis of left leg without foot Additional Impression: Diabetes mellitus with hyperglycemia Condition: Stable Scripts Clindamycin HCl (Clindamycin HCl) 300 Mg Capsule 1 CAP PO TID for 10 Days, #30 CAP 0 Refills Prov: LEONILA TIDWELL 02/27/25 Referrals: [facility] (PCP) Time of Disposition: 20:42 LEONILA TIDWELL Feb 27, 2025 16:19
[2025-02-27 16:30] LABS: ERYTHROCYTE SEDIMENTATION RATE 103 MM/HR (0-20)
--- NOTE | 2025-02-27 17:25 | HMCIMG ---
EXAM: CR right Tibia and fibula, 4 View. CLINICAL HISTORY: pain COMPARISON: None provided. FINDINGS: BONES: No small posterior calcaneal spur acute fracture or aggressive appearing osseous lesion. JOINTS: No dislocation. The joint spaces are normal. SOFT TISSUES: Moderate calcific atherosclerosis of the calf arteries. Mild diffuse soft tissue swelling IMPRESSION: 1. No acute osseous injury. 2. Moderate calcific atherosclerosis of the calf arteries. 3. Mild diffuse soft tissue swelling. /[place]
[2025-02-27] MEDS: 0.9%NACL 1000ML 1,000 ML IV ONE (18:07)
[2025-02-27 18:39] LABS: ABG BASE EXCESS -8.0 mmol/L (-2.0-3.0); ABG HCO3 16.6 mmol/L (21.0-28.0); ABG OXYGEN SATURATION 97.4 % (94.0-98.0); ABG PCO2 32 mmHg (35-48); ABG PH 7.335 (7.350-7.450); DEVICE COMMENT RR RN; PO2, ARTERIAL BG 101.2 mmHg (83.0-108.0); TEMPERATURE, CELSIUS BG 37.0 CELSIUS (35.5-37.0); VENT MODE, BG RA (ROOM AIR)
[2025-02-27 20:16] LABS: CREATININE 2.1 mg/dL (0.5-1.3); GLOMERULAR FILTR. RATE CALC 35 mL/min (>90); GLUCOSE,RANDOM 114 mg/dL (70-105); SODIUM SERUM 139 mmol/L (136-145); UREA NITROGEN, BLOOD 48 mg/dL (7-18)
[2025-02-27 20:37] VITALS: BP 125/65; PULSE 75; RESP 18; TEMP 98.2; O2SAT 97
== END ==
LOC: EDH 14:26
DX: L03.116 Cellulitis of left lower limb (principal); E11.65 Type 2 diabetes mellitus with hyperglycemia; E78.00 Pure hypercholesterolemia, unspecified; F17.200 Nicotine dependence, unspecified, uncomplicated; I11.0 Hypertensive heart disease with heart failure; I50.9 Heart failure, unspecified; I25.2 Old myocardial infarction; Z79.4 Long term (current) use of insulin; Z79.02 Long term (current) use of antithrombotics/antiplatelets; Z79.82 Long term (current) use of aspirin; Z79.84 Long term (current) use of oral hypoglycemic drugs; Z79.85 Long-term (current) use of injectable non-insulin antidiabetic drugs; Z79.899 Other long term (current) drug therapy; Z95.5 Presence of coronary angioplasty implant and graft
CPT/HCPCS: 99284; 96374; 96361; 80053; 82803; 85025; 85651; 82010; 86140; 36415; 73590; 36600; 80048; J1815; J7030

== ENCOUNTER → 2025-05-03 | Outpatient (CLI) | payer OTHER ==
[~2025-05-03] VITALS: Ht 166.4 cm; Wt 84.2 kg
[~2025-05-03] MED LIST changes: +MUPI22O TP; +PANT40TA54 PO; +SPIR100T5 PO; +VERQUVO PO
[2025-05-03 11:23] LABS: IMMATURE GRANULOCYTE ABSOLUTE 0.21 K/uL (0-1); NUCLEATED RED BLOOD CELLS 0.0 % (0.0-0.19); PLATELET COUNT (AUTO) 317 K/uL (130-400); RED BLOOD CELL COUNT(AUTO) 3.78 MIL/uL (4.50-6.20); RED CELL DISTRIBUTION WIDTH 14.0 % (11.0-15.5); WHITE BLOOD COUNT (AUTO) 15.5 K/uL (4.8-10.8)
[2025-05-03 11:32] LABS: APPEARANCE,URINE CLEAR (CLEAR); GLUCOSE, URINE (UA) 200 mg/dL (NEGATIVE); LEUKOCYTE ESTERASE ,URINE NEGATIVE Leu/uL (NEGATIVE); NITRATE,URINE NEGATIVE (NEGATIVE); OCCULT BLOOD,URINE +- (TRACE) (NEGATIVE)
[2025-05-03 11:34] LABS: ADD UA MICROSCOPIC YES
[2025-05-03 11:34] LABS: INR 1.0 (0.85-1.15)
[2025-05-03 11:35] LABS: CREATININE 1.3 mg/dL (0.5-1.3); GLOMERULAR FILTR. RATE CALC 62.0 mL/min (>90); GLUCOSE,RANDOM 187.0 mg/dL (70-105); SODIUM SERUM 141.0 mmol/L (136-145); UREA NITROGEN, BLOOD 27.0 mg/dL (7-18)
[2025-05-03 11:37] LABS: SQUAMOUS EPITHELIAL CELL,UR RARE /HPF (0-2)
[2025-05-03 11:55] VITALS: BP 140/78; PULSE 81; RESP 18; TEMP 97.4
--- NOTE | 2025-05-03 12:03 | EKG ---
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
--- NOTE | 2025-05-03 15:25 | HMCIMG ---
EXAM: CR Chest, 1 View. CLINICAL HISTORY: PRE OP COMPARISON: January 06, 2025 FINDINGS: LUNGS: There is no mass, infiltrate, or acute pulmonary abnormality. PLEURAL SPACES: No pleural effusion or pneumothorax. MEDIASTINUM: The cardiomediastinal silhouette is within normal limits. BONES: No aggressive appearing osseous lesion seen. IMPRESSION: No acute cardiopulmonary pathology is evident. /[place]
--- NOTE | 2025-05-05 10:57 | NUR ---
REPORT REPORTED CBC/UA/BNP/BMP TO JJ CAMPA. ALSO INFORMED PT HAD COLD 04/18 AND WAS GIVEN ANTIBIOTICS BUT DID NOT FINISH. PT CANCELLED AND WILL NEED TO FOLLOW UP WITH PCP. SPOUSE INFORMED AND VOICED UNDERSTANDING
== END ==
LOC: EDSTATUS 09:00 → DAH 09:48
PROVIDERS: ATTEND Internal Medicine Cardiovascular Disease
DX: I65.23 Occlusion and stenosis of bilateral carotid arteries (principal); Z53.8 Procedure and treatment not carried out for other reasons; I13.0 Hypertensive heart and chronic kidney disease with heart failure and stage 1 through stage 4 chronic kidney disease, or unspecified chronic kidney disease; I50.22 Chronic systolic (congestive) heart failure; N18.30 Chronic kidney disease, stage 3 unspecified; J44.9 Chronic obstructive pulmonary disease, unspecified; I48.91 Unspecified atrial fibrillation; E78.2 Mixed hyperlipidemia
CPT/HCPCS: 36415; 71045; 80048; 81001; 83880; 85025; 85610; 85730; 93005

== ENCOUNTER 2025-05-24 10:47 | Emergency (ER) | payer OTHER ==
[~2025-05-24] VITALS: Ht 167.6 cm; Wt 84.8 kg
[~2025-05-24 10:47] MED LIST changes: -ASPI-1443 PO; -CLIN-141 PO; -DAPA10TA PO; -DONE5TAB33 PO; -INSLAN SQ; -METF-446 PO; -MUPI22O TP; -SEMA1SYR SQ
--- NOTE | 2025-05-24 10:55 | ERN ---
ED Note History of Present Illness Stated Complaint: WOUND CHECK Chief Complaint: Wound Check Time Seen by MD: 10:48 Dictation: PATIENT IS A 64-YEAR-OLD MALE COMING IN FROM HOME WITH COMPLAINTS OF ERYTHEMA TO THE RIGHT LOWER EXTREMITY FROM THE [place]CALF DOWN. HE ALSO HAS A STAGE II DIABETIC ULCER TO THE LATERAL ASPECT OF THE RIGHT ANKLE. ERYTHEMA SWELLING NOTED. DISTAL NEUROVASCULAR CMS INTACT HE DENIES FEVER CHILLS NAUSEA VOMITING. Allergies: Coded Allergies: No Known Drug Allergies (Unverified Allergy, Unknown, 03/24/18) Home Meds Reported Medications Spironolactone (Spironolactone) 100 Mg Tablet, 100 MG PO AM, TAB 05/03/25 Pantoprazole Sodium (Pantoprazole Sodium) 40 Mg Tablet.dr, 40 MG PO AM, TAB 05/03/25 [Verquvo] No Conflict Check, 10 MG PO AM 05/03/25 Bupropion HCl (Bupropion HCl) 100 Mg Tablet, 200 MG PO BID, TAB 01/06/25 Hydralazine HCl (Hydralazine HCl) 25 Mg Tablet, 25 MG PO DAILY, TAB 01/06/25 Tamsulosin HCl (Flomax) 0.4 Mg Cap.er.24h, 0.4 MG PO DAILY, CAPSULE.DR 08/24/24 Valsartan (Valsartan) 40 Mg Tablet, 40 MG PO BID, TAB 08/24/24 Atorvastatin Calcium (Atorvastatin Calcium) 40 Mg Tablet, 40 MG PO HS, TAB 08/24/24 Metoprolol Succinate (Metoprolol Succinate) 100 Mg Tab.er.24h, 100 MG PO AM, TAB 08/24/24 Isosorbide Mononitrate (Isosorbide Mononitrate ER) 30 Mg Tab.er.24h, 60 MG PO DAILY, TAB 08/24/24 Clopidogrel Bisulfate (Clopidogrel) 75 Mg Tablet, 75 MG PO DAILY, TAB 08/24/24 Furosemide (Furosemide) 40 Mg Tablet, 40 MG PO BID, TAB 02/10/22 Past Medical History Past Medical History: CHF, Diabetes-Type II, High Cholesterol, Hypertension, [place], Other Additional Past Medical Hx: BPH Surgical History: Other Surgical History Other: CARDIAC STENTS Family History: CAD, DM, HTN 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 13 POINT REVIEW OF SYSTEMS ASSESSED AND ALL NEGATIVE EXCEPT FOR ABOVE. Initial Vital Sign VS Vital Signs Date Time Temp Pulse Resp B/P (MAP) Pulse Ox O2 Delivery O2 Flow Rate FiO2 05/24/25 10:48 97.5 84 15 141/78 100 Room Air 0 05/24/25 10:50 21 Physical Exam Dictation VITAL SIGNS REVIEWED GENERAL APPEARANCE: ALERT, ORIENTED X 3, NO ACUTE DISTRESS, WELL DEVELOPED, NOURISHED. HEAD AND FACE: NON-TRAUMATIC. EYES: PERRL, PINK CONJUNCTIVAS, EYELID NO TRAUMA, ANTERIOR CHAMBER WITH ARCUS SENILIS. EARS: PINNAS INTACT AND NO SIGNS OF TRAUMA OR ERYTHEMA EAR CANALS CLEAR AND NO DISCHARGE TM NO ERYTHEMA NOSE: NO DISCHARGE, NO BLEEDING. OROPHARYNX: MOUTH NORMAL, TONGUE PINK, PHARYNX CLEAR,NO ERYTHEMA, TONSILS NO EXUDATES, NO ABSCESSES NOTED, MUCOUS MEMBRANE MOIST NECK: SUPPLE, NON-TENDER, NO THYROMEGALY, NO MASSES, NO JVD, NO BRUITS BREAST:DEFERRED CHEST:NO TENDERNESS, NO CREPITUS, NO PARADOXICAL MOVEMENT, NO RETRACTIONS LUNGS:CLEAR, WELL-VENTILATED, SYMMETRIC, NO RALES, NO WHEEZING, NO RHONCHI, NO STRIDOR, GOOD BREATH SOUNDS BILATERALLY HEART: REGULAR RATE, REGULAR RHYTHM, NO MURMUR, NO GALLOPS VASCULAR: NO PERIPHERAL EDEMA, ABDOMEN: SOFT, POSITIVE BOWEL SOUNDS, NONDISTENDED, NO GUARDING, NONTENDER, NO REBOUND, NO MASSES NO HEPATOMEGALY, NO SPLENOMEGALY, NO MILLARD'S SIGN, NO HERNIAS. RECTAL: DEFERRED GENITAL: DEFERRED NEUROLOGICAL: NORMAL SPEECH, MOTOR FUNCTION INTACT, SENSORY FUNCTION INTACT MUSCULOSKELETAL: NECK NONTENDER, FULL RANGE OF MOTION, BACK NONTENDER, FULL RANGE OF MOTION, EXTREMITIES 1 X 1 CM STAGE II DIABETIC ULCER TO RIGHT LATERAL ANKLE. ERYTHEMA SWELLING TENDERNESS FROM KNEE DOWN TO ANKLE. LYMPHATIC: DEFERRED Results (Laboratory/Radiology) Laboratory/Radiology Laboratory Tests Test 05/24/25 11:01 White Blood Count 10.8 K/uL (4.8-10.8) Red Blood Count 3.98 MIL/uL (4.50-6.20) L Hemoglobin 11.3 g/dL (14.0-18.0) L Hematocrit 36.4 % (42-54) L Mean Corpuscular Volume 91.5 fL (79-99) Mean Corpuscular Hemoglobin 28.4 pg (27.0-33.0) Mean Corpuscular Hemoglobin Concent 31.0 g/dL (32.0-36.0) L Red Cell Distribution Width 14.7 % (11.0-15.5) Platelet Count 279 K/uL (130-400) Mean Platelet Volume 10.2 fL (7.5-10.5) Immature Granulocyte % (Auto) 0.7 % (0-1) Neutrophils (%) (Auto) 67.6 % (40.0-77.0) Lymphocytes (%) (Auto) 21.1 % (21.0-51.0) Monocytes (%) (Auto) 8.1 % (3.0-13.0) Eosinophils (%) (Auto) 2.0 % (0.0-8.0) Basophils (%) (Auto) 0.5 % (0.0-5.0) Neutrophils # (Auto) 7.3 K/uL (1.8-7.7) Lymphocytes # (Auto) 2.3 K/uL (1.0-4.8) Monocytes # (Auto) 0.9 K/uL (0.1-1.0) Eosinophils # (Auto) 0.21 K/uL (0.00-0.70) Basophils # (Auto) 0.05 K/uL (0.00-0.20) Absolute Immature Granulocyte (auto 0.07 K/uL (0-1) Nucleated Red Blood Cells 0.0 % (0.0-0.19) Red Blood Cell Morphology See comments Sodium Level 140 mmol/L (136-145) Potassium Level 4.3 mmol/L (3.5-5.1) Chloride Level 106 mmol/L (101-111) Carbon Dioxide Level 26 mmol/L (21-32) Blood Urea Nitrogen 27 mg/dL (7-18) H Creatinine 1.4 mg/dL (0.5-1.3) H Glomerular Filtration Rate Calc 56 mL/min (>90) Random Glucose 237 mg/dL (70-105) H Lactic Acid Level 1.5 mmol/L (0.8-2.5) Total Calcium 9.2 mg/dL (8.5-10.1) Labs Reviewed?: Yes ED Course ED Course Orders Procedure Category Date Status Time Blood Cult SUELLEN 05/24/25 Logged 10:52 Lactic Acid LAB 05/24/25 Complete 10:52 Aerobic Culture SUELLEN 05/24/25 In Process 10:52 Cbc With Differential LAB 05/24/25 Complete 10:52 Basic Metabolic Panel LAB 05/24/25 Complete 10:52 Clindamycin 150mg Cap PHA 05/24/25 Complete (Cleocin 150mg Cap 11:30 Current Medications Medications (Trade) Dose Ordered Sig/Dina Route PRN Reason Start Time Stop Time Status Last Admin Dose Admin Clindamycin HCl (Cleocin 150mg Cap) 600 mg ONCE ONCE PO 05/24/25 11:30 05/24/25 11:31 DC 05/24/25 11:26 Vital Signs Date Time Temp Pulse Resp B/P (MAP) Pulse Ox O2 Delivery O2 Flow Rate FiO2 05/24/25 10:50 97.5 84 15 141/78 100 Room Air* 0 21 05/24/25 10:48 97.5 84 15 141/78 100 Room Air 0 /PATIENT WILL BE DISCHARGED HOME AFTER LACTIC ACID LESS THAN TWO AND NO FEVER AT THIS TIME. HE WILL BE DISCHARGED HOME WITH CLINDAMYCIN AND BACTROBAN TOLD TO SEE HIS PRIMARY CARE DOCTOR FOR FOLLOW UP AND MANAGEMENT Medical Decision Making MDM MEDICAL DISCHARGE MAKING BASED ON BASIC LABS AND BLOOD CULTURES WITH LACTIC ACID. CULTURE WAS SENT OF DIABETIC ULCER PATIENT WAS DISCHARGED HOME WITH CLINDAMYCIN AND BACTROBAN TOLD TO SEE HIS PRIMARY CARE DOCTOR FOR FOLLOW UP DX & DISP Disposition: Discharge Departure Impression: Primary Impression: Cellulitis of right lower extremity without foot Additional Impressions: Diabetic ulcer of right lower leg, Stage 3 chronic kidney disease, Diabetes mellitus with hyperglycemia Condition: Stable Scripts Clindamycin HCl (Clindamycin HCl) 300 Mg Capsule 1 CAP PO QID for 10 Days, #40 CAP 0 Refills Prov: HEBER VILLA BLACK OFF WORKER 05/24/25 Mupirocin (Bactroban 2% Oint) 2 % Oint 1 APPL TP TID for 5 Days, #15 GM 0 Refills apply to affected area(s) Prov: HEBER VILLA 05/24/25 Additional Instructions: FOLLOW-UP WITH PRIMARY CARE PROVIDER IN 1 TO 2 DAYS. TAKE MEDICATIONS DIRECT ED HERE IN THE EMERGENCY ROOM. OKAY TO CONTINUE HOME MEDICATIONS UNLESS OTHERWISE DISCUSSED DURING YOUR VISIT IN THE EMERGENCY ROOM TODAY. RETURN TO YOUR NEAREST EMERGENCY ROOM IF SYMPTOMS WORSEN OR IF THERE IS NO IMPROVEMENT. CALL 911 IF YOU NEED IMMEDIATE ASSISTANCE. TAKE TYLENOL OR MOTRIN [id number] NEEDED AND IF NO CONTRAINDICATIONS ARE PRESENT. INCREASE ORAL HYDRATION. A WOUND CULTURE OR URINE CULTURE WAS ORDERED HERE IN THE EMERGENCY ROOM DEPARTMENT PLEASE FOLLOW-UP WITH PRIMARY CARE PROVIDER AND ADVISE THEM TO GET REPEAT PORTS FROM OUR FACILITY. IF YOU HAD ANY JORGE WRAP/SPLINTS THAT WERE APPLIED HERE, PLEASE DO NOT REMOVE THEM UNTIL YOU SEE YOUR PRIMARY CARE OR SPECIALTY. WASH ULCER TO RIGHT LOWER EXTREMITY WITH SOAP AND WATER AND DRY THOROUGHLY. APPLY BACTROBAN OINTMENT WITH DRESSING 3 TIMES A DAY FOR FIVE DAYS. TAKE CLINDAMYCIN DIRECTED FOR THE NEXT 10 DAYS AND SEE YOUR PRIMARY CARE DOCTOR FOR FOLLOW UP AND MANAGEMENT. Referrals: [facility] (PCP) Time of Disposition: 11:57 I have reviewed the case, and I agree with, Diagnosis and Plan HEBER VILLA May 24, 2025 10:55
[2025-05-24 11:08] LABS: IMMATURE GRANULOCYTE ABSOLUTE 0.07 K/uL (0-1); NUCLEATED RED BLOOD CELLS 0.0 % (0.0-0.19); PLATELET COUNT (AUTO) 279 K/uL (130-400); RED BLOOD CELL COUNT(AUTO) 3.98 MIL/uL (4.50-6.20); RED CELL DISTRIBUTION WIDTH 14.7 % (11.0-15.5); WHITE BLOOD COUNT (AUTO) 10.8 K/uL (4.8-10.8)
[2025-05-24 11:19] LABS: CREATININE 1.4 mg/dL (0.5-1.3); GLOMERULAR FILTR. RATE CALC 56.0 mL/min (>90); GLUCOSE,RANDOM 237.0 mg/dL (70-105); SODIUM SERUM 140.0 mmol/L (136-145); UREA NITROGEN, BLOOD 27.0 mg/dL (7-18)
[2025-05-24] MEDS: CLINDAMYCIN 150 MG CAP PO ONE (11:26)
[2025-05-24] MEDS ORDERED: CLIN-141 PO (11:58)
[2025-05-24] MEDS ORDERED: MUPI22O TP (11:58)
[2025-05-24 12:09] VITALS: BP 150/76; PULSE 76; RESP 13; TEMP 98.6; O2SAT 100
== END 2025-05-24 12:24 | disposition home or self-care (01) ==
LOC: EDH 10:47
DX: L03.115 Cellulitis of right lower limb (principal); E11.622 Type 2 diabetes mellitus with other skin ulcer; L97.919 Non-pressure chronic ulcer of unspecified part of right lower leg with unspecified severity; E11.65 Type 2 diabetes mellitus with hyperglycemia; I13.0 Hypertensive heart and chronic kidney disease with heart failure and stage 1 through stage 4 chronic kidney disease, or unspecified chronic kidney disease; E11.22 Type 2 diabetes mellitus with diabetic chronic kidney disease; I50.9 Heart failure, unspecified; N18.30 Chronic kidney disease, stage 3 unspecified; E78.00 Pure hypercholesterolemia, unspecified; I25.2 Old myocardial infarction; F17.200 Nicotine dependence, unspecified, uncomplicated; Z79.02 Long term (current) use of antithrombotics/antiplatelets; Z79.899 Other long term (current) drug therapy; Z95.5 Presence of coronary angioplasty implant and graft
CPT/HCPCS: 36415; 80048; 83605; 85025; 87040; 87070; 87086; 87186; 99283